=== PATIENT | male | born 1965 | race Hispanic/Latino ===

== ENCOUNTER 2018-03-09 07:05 | Emergency (ER) | payer BC ==
--- NOTE | 2018-03-09 08:13 | ER ---
Nurse's Notes [facility] Name: Prabhu Patel Age: 52 yrs Sex: Male : 1965 Arrival Date: 03/09/2018 Time: 07:06 Bed 20 Private MD: Chuck Jasso S Diagnosis: Pain in left shoulder;Unspecified injury of muscle(s) and tendon(s) of the rotator cuff of left shoulder Presentation: 03/09 07:13 Presenting complaint: Patient states: pt was pushing some heavy farm equipment em yesterday and heard a pop in the left shoulder, limited ROM due to pain, denies trauma. Transition of care: patient was not received from another setting of care. Onset of symptoms was March 08, 2018. Risk Assessment: Do you want to hurt yourself or someone else? Patient reports no desire to harm self or others. Initial Sepsis Screen: Does the patient meet any 2 criteria? No. Patient's initial sepsis screen is negative. Does the patient have a suspected source of infection? No. Patient's initial sepsis screen is negative. Care prior to arrival: None. 07:13 Method Of Arrival: Ambulatory em 07:13 Acuity: HARPAL 4 ss Triage Assessment: 07:15 General: Appears in no apparent distress. uncomfortable, Behavior is calm, cooperative. em Pain: Complains of pain in left shoulder Alleviated by movement. Historical: - Allergies: 07:15 No Known Allergies; em - PMHx: 07:15 Hypertension; tennis elbow; em - PSHx: 07:15 orbital eye sx; left thumb; em - Immunization history:: Adult Immunizations up to date. - Social history:: Smoking status: Patient/guardian denies using tobacco. - Ebola Screening: : Patient negative for fever greater than or equal to 101.5 degrees Fahrenheit, and additional compatible Ebola Virus Disease symptoms Patient denies exposure to infectious person Patient denies travel to an Ebola-affected area in the 21 days before illness onset No symptoms or risks identified at this time. Screenin:18 Abuse screen: Denies threats or abuse. Nutritional screening: No deficits noted. em Tuberculosis screening: No symptoms or risk factors identified. Fall Risk None identified. Assessment: 07:18 General: Appears in no apparent distress. uncomfortable, Behavior is calm, cooperative. em Pain: Complains of pain in left shoulder. Neuro: Level of Consciousness is awake, alert, obeys commands, Oriented to person, place, time, situation. Cardiovascular: Capillary refill < 3 seconds Patient's skin is warm and dry. Respiratory: Airway is patent Respiratory effort is even, unlabored, Respiratory pattern is regular, symmetrical. GI: Abdomen is flat. : No signs and/or symptoms were reported regarding the genitourinary system. Derm: Skin is intact, Skin is pink, warm \T\ dry. Musculoskeletal: Range of motion: limited in left shoulder. 07:23 General: the previous assessment is accurate, call light remains within reach. . ss 07:38 Reassessment: Patient appears in no apparent distress at this time. pt refused sling, em reports having 2 at home, provider notified. 08:20 Reassessment: Patient appears in no apparent distress at this time. Patient and/or em family updated on plan of care and expected duration. Pain level reassessed. Patient is alert, oriented x 3, equal unlabored respirations, skin warm/dry/pink. Vital Signs: 07:15 BP 168 / 94; Pulse 67; Resp 18; Pulse Ox 97% on R/A; Weight 99.79 kg; Height 5 ft. 10 em in. (177.80 cm); Pain 3/10; 08:32 BP 147 / 85; Pulse 71; Resp 16; Pulse Ox 99% on R/A; Pain 3/10; em 07:15 Body Mass Index 31.57 (99.79 kg, 177.80 cm) em ED Course: 07:06 Patient arrived in ED. am2 07:06 Chuck Jasso MD is Private Physician. am2 07:10 Shayne García NP is PHCP. pm1 07:13 Angel Camejo LVN is Primary Nurse. em 07:15 Arm band placed on. em 07:18 Patient has correct armband on for positive identification. Bed in low position. Call em light in reach. Adult w/ patient. 07:18 No provider procedures requiring assistance completed. em 07:21 Triage completed. ss 07:37 X-ray completed. Portable x-ray completed in exam room. Patient tolerated procedure kp1 well. 07:38 Shoulder Left (2 View) XRAY In Process Unspecified. EDMS 07:46 Francisco Sheridan MD is Attending Physician. pm1 08:11 Joshua Varner MD is Referral Physician. pm1 08:31 Patient did not have IV access during this emergency room visit. Shoulder immobilizer em applied on left shoulder. Administered Medications: No medications were administered Outcome: 08:12 Discharge ordered by MD. pm1 08:32 Discharged to home ambulatory, with family. em 08:32 Condition: good 08:32 Discharge instructions given to patient, family, Instructed on discharge instructions, follow up and referral plans. no drinking with medication, no driving heavy equipment, medication usage, Demonstrated understanding of instructions, follow-up care, medications, Prescriptions given X 1. 08:33 Patient left the ED. em Signatures: Dispatcher [employer] EDMS Angel Camejo, PROJECT MANAGER INDUSTRIAL PROJECT MANAGER INDUSTRIAL em Lucinda Saeed RN RN Shayne Dubon, PRABHA BUFFING LINE SET UP WORKER pm1 Sheri Otto am2 Belkys Vasquez kp1
--- NOTE | 2018-03-09 08:13 | EDPHYS ---
Physician Documentation [facility] Name: Prabhu Patel Age: 52 yrs Sex: Male : 1965 Arrival Date: 03/09/2018 Time: 07:06 Bed 20 Private MD: Chuck Jasso S ED Physician Francisco Sheridan HPI: 03/09 07:18 This 52 yrs old Male presents to ER via Ambulatory with complaints of Left pm1 Shoulder Pain. 07:18 The patient or guardian complains of an injury, pain. left shoulder. Context: The pm1 problem was sustained at home, resulted from lifting or carrying, a heavy object, The patient experiences decreased range of motion, The patient reports no obvious deformity. Onset: The symptoms/episode began/occurred yesterday. Modifying factors: the symptoms are alleviated by remaining still, The symptoms are aggravated by movement. Associated signs and symptoms: Pertinent negatives: abdominal pain, chest pain, diaphoresis, dyspnea, neck pain, Numbness in left arm tingling, Weakness in left arm. Severity of symptoms: in the emergency department the symptoms are actually worse. Treatment prior to arrival includes: no previous treatment. The patient has not experienced similar symptoms in the past. Patient was lifting up a ring for farm equipment with both hands and he felt a pop in his left arm that caused instant pain. Had some ROM to left shoulder last night. Patient is not able to lift his left arm up or keep it up when lifted up passively. Patient's left shoulder pain only present with moving it. Historical: - Allergies: 07:15 No Known Allergies; em - PMHx: 07:15 Hypertension; tennis elbow; em - PSHx: 07:15 orbital eye sx; left thumb; em - Immunization history:: Adult Immunizations up to date. - Social history:: Smoking status: Patient/guardian denies using tobacco. - Ebola Screening: : Patient negative for fever greater than or equal to 101.5 degrees Fahrenheit, and additional compatible Ebola Virus Disease symptoms Patient denies exposure to infectious person Patient denies travel to an Ebola-affected area in the 21 days before illness onset No symptoms or risks identified at this time. ROS: 07:18 Constitutional: Negative for fever, chills, and weight loss, Eyes: Negative for injury, pm1 pain, redness, and discharge, ENT: Negative for injury, pain, and discharge, Neck: Negative for injury, pain, and swelling, Cardiovascular: Negative for chest pain, palpitations, and edema, Respiratory: Negative for shortness of breath, cough, wheezing, and pleuritic chest pain, Abdomen/GI: Negative for abdominal pain, nausea, vomiting, diarrhea, and constipation, Back: Negative for injury and pain. 07:18 Skin: Negative for injury, rash, and discoloration, Neuro: Negative for headache, weakness, numbness, tingling, and seizure. 07:18 MS/extremity: Positive for pain, of the left shoulder, Negative for deformity. Exam: 07:18 Constitutional: This is a well developed, well nourished patient who is awake, alert, pm1 and in no acute distress. Head/Face: Normocephalic, atraumatic. Eyes: Pupils equal round and reactive to light, extra-ocular motions intact. Lids and lashes normal. Conjunctiva and sclera are non-icteric and not injected. Cornea within normal limits. Periorbital areas with no swelling, redness, or edema. ENT: Nares patent. No nasal discharge, no septal abnormalities noted. Tympanic membranes are normal and external auditory canals are clear. Oropharynx with no redness, swelling, or masses, exudates, or evidence of obstruction, uvula midline. Mucous membranes moist. Neck: Trachea midline, no thyromegaly or masses palpated, and no cervical lymphadenopathy. Supple, full range of motion without nuchal rigidity, or vertebral point tenderness. No Meningismus. Chest/axilla: Normal chest wall appearance and motion. Nontender with no deformity. No lesions are appreciated. Cardiovascular: Regular rate and rhythm with a normal S1 and S2. No gallops, murmurs, or rubs. Normal PMI, no JVD. No pulse deficits. Respiratory: Lungs have equal breath sounds bilaterally, clear to auscultation and percussion. No rales, rhonchi or wheezes noted. No increased work of breathing, no retractions or nasal flaring. Abdomen/GI: Soft, non-tender, with normal bowel sounds. No distension or tympany. No guarding or rebound. No evidence of tenderness throughout. Back: No spinal tenderness. No costovertebral tenderness. Full range of motion. Skin: Warm, dry with normal turgor. Normal color with no rashes, no lesions, and no evidence of cellulitis. 07:18 Musculoskeletal/extremity: Extremities: grossly normal except: noted in the left shoulder: Passive range of motion intact. Patient unable to keep left arm elevated when raised passively, drops to side without any resistance. 07:18 Neuro: Orientation: is normal, Sensation: is normal, no obvious gross deficits, Gait: is steady, at a normal pace, without difficulty. Vital Signs: 07:15 BP 168 / 94; Pulse 67; Resp 18; Pulse Ox 97% on R/A; Weight 99.79 kg; Height 5 ft. 10 em in. (177.80 cm); Pain 3/10; 08:32 BP 147 / 85; Pulse 71; Resp 16; Pulse Ox 99% on R/A; Pain 3/10; em 07:15 Body Mass Index 31.57 (99.79 kg, 177.80 cm) em MDM: 07:16 Patient medically screened. pm1 07:17 ED course: Patient offered pain medications. Patient refused since his shoulder does pm1 not hurt as long as he does not move it. 07:29 Data reviewed: vital signs. Data interpreted: Pulse oximetry: on room air is 97 %. pm1 Interpretation: normal. 08:09 ED course: Patient would like to use a shoulder immobilizer over a sling. He tried pm1 using a sling at home and it was painful and uncomfortable. 08:10 Counseling: I had a detailed discussion with the patient and/or guardian regarding: the pm1 historical points, exam findings, and any diagnostic results supporting the discharge/admit diagnosis, radiology results, the need for outpatient follow up, for definitive care, a orthopedic surgeon, MRI, to return to the emergency department if symptoms worsen or persist or if there are any questions or concerns that arise at home. 03/09 07:16 Order name: Shoulder Left (2 View) XRAY pm1 03/09 08:10 Order name: Shoulder Immobilizer; Complete Time: 08:31 pm1 Administered Medications: No medications were administered Disposition: 10:02 Co-signature as Attending Physician, Francisco Sheridan MD I agree with the assessment and kdr plan of care. Disposition: 03/09/18 08:12 Discharged to Home. Impression: Pain in left shoulder, Unspecified injury of muscle(s) and tendon(s) of the rotator cuff of left shoulder. - Condition is Stable. - Discharge Instructions: Rotator Cuff Injury, Shoulder Pain. - Prescriptions for Tylenol- Codeine #3 300-30 mg Oral Tablet - take 2 tablets by ORAL route every 6 hours As needed; 20 tablet. - Medication Reconciliation Form, Thank You Letter, Antibiotic Education, Prescription Opioid Use form. - Follow up: Joshua Varner MD; When: 2 - 3 days; Reason: Recheck today's complaints, Continuance of care, Re-evaluation by your physician. Follow up: Private Physician; When: 2 - 3 days; Reason: Recheck today's complaints, Continuance of care, Re-evaluation by your physician. - Problem is new. - Symptoms have improved. Signatures: Dispatcher [employer] EDMS Francisco Sheridan MD MD [facility] Angel Camejo, CLOTH SHRINKING MACHINE OPERATOR HELPER CLOTH SHRINKING MACHINE OPERATOR HELPER em Shayne García, PRABHA HYDRO SPRAYER OPERATOR pm1 Corrections: (The following items were deleted from the chart) 07:38 07:16 Sling ordered. pm1 em 08:33 08:12 03/09/2018 08:12 Discharged to Home. Impression: Pain in left shoulder; em Unspecified injury of muscle(s) and tendon(s) of the rotator cuff of left shoulder. Condition is Stable. Forms are Medication Reconciliation Form, Thank You Letter, Antibiotic Education, Prescription Opioid Use. Follow up: Joshua Varner; When: 2 - 3 days; Reason: Recheck today's complaints, Continuance of care, Re-evaluation by your physician. Follow up: Private Physician; When: 2 - 3 days; Reason: Recheck today's complaints, Continuance of care, Re-evaluation by your physician. Problem is new. Symptoms have improved. pm1
[2018-03-09 08:40] VITALS: BP 147/85; O2SAT 99
--- NOTE | 2018-03-09 09:20 | RAD REPORT ---
EXAM DESCRIPTION: RAD - Shoulder Left 2 View - 03/09/2018 7:39 am CLINICAL HISTORY: Left shoulder pain FINDINGS: No fracture or dislocation is seen. The bones appear somewhat osteoporotic. No additional bone or joint abnormality is noted
== END 2018-03-09 08:33 | disposition home or self-care (01) ==
LOC: ER 07:05
DX: S46.002A Unspecified injury of muscle(s) and tendon(s) of the rotator cuff of left shoulder, initial encounter (principal); X50.9XXA Other and unspecified overexertion or strenuous movements or postures, initial encounter; Y93.89 Activity, other specified; Y92.9 Unspecified place or not applicable; I10 Essential (primary) hypertension
CPT/HCPCS: 99283

== ENCOUNTER 2020-08-21 11:35 | Emergency (ER) | payer BC ==
[2020-08-21 12:22] LABS: Absolute Lymphocytes (CBC) 1.8 K/uL (0.7-4.9); Lymphocytes % 29.1 % (15.3-44.8); MPV 9.5 fL (7.6-11.3); RBC Red Blood Cell Count 5.05 M/uL (4.33-5.43)
[2020-08-21 12:24] LABS: Protime INR 1.2
--- NOTE | 2020-08-21 12:37 | RAD REPORT ---
EXAM DESCRIPTION: CT - Head Brain Wo Cont - 08/21/2020 12:29 pm CLINICAL HISTORY: Headache COMPARISON: None. TECHNIQUE: Computed axial tomography of the head was obtained. IV contrast was not requested. All CT scans are performed using dose optimization technique as appropriate and may include automated exposure control or mA/KV adjustment according to patient size. FINDINGS: An intracranial bleed is not seen . The ventricles are normal in caliber. No extra-axial fluid collection is noted. Fluid within the sinuses/ mastoids is not seen. IMPRESSION: No acute intracranial abnormality is seen. If patient's symptoms persist MRI of the bra in would be recommended.
[2020-08-21 12:41] LABS: ALT/SGPT 25 U/L (12-78); AST/SGOT 17 U/L (15-37); Albumin 3.9 g/dL (3.4-5.0); Alkaline Phosphatase 83 U/L (45-117); BUN Blood Urea Nitrogen 14 mg/dL (7-18); Bicarbonate 26 mmol/L (21-32); Bilirubin Direct 0.2 mg/dL (0-0.2); Bilirubin Total 0.9 mg/dL (0.2-1.0); Glucose Level 110 mg/dL (74-106); Magnesium 2.3 mg/dL (1.8-2.4); NT PRO-BNP 73 pg/mL (<125); Potassium 3.9 mmol/L (3.5-5.1); Protein, Total 7.8 g/dL (6.4-8.2); Sodium Level 143 mmol/L (136-145); Troponin (Emerg Dept Use Only) < 0.02 ng/mL (0.0-0.045)
[2020-08-21] MEDS ORDERED: ACETAMINOPHEN 500 MG TAB ONE (12:56)
--- NOTE | 2020-08-21 13:34 | ER ---
Nurse's Notes [facility] Name: Prabhu Patel Age: 55 yrs Sex: Male : 1965 Arrival Date: 08/21/2020 Time: 11:37 Bed 14 Private MD: Diagnosis: Elevated Blood pressure;Headache Presentation: 08/21 11:46 Coronavirus screen: Client denies travel out of the [place] in the last 14 days. At this ll1 time, the client does not indicate any symptoms associated with coronavirus-19. Ebola Screen: Patient denies travel to an Ebola-affected area in the 21 days before illness onset. Initial Sepsis Screen: Does the patient meet any 2 criteria? No. Patient's initial sepsis screen is negative. Does the patient have a suspected source of infection? No. Patient's initial sepsis screen is negative. Risk Assessment: Do you want to hurt yourself or someone else? Patient reports no desire to harm self or others. Onset of symptoms was August 19, 2020. 11:46 Method Of Arrival: Ambulatory ll1 11:46 Acuity: HARPAL 2 ll1 Historical: - Allergies: 11:46 No Known Allergies; ll1 - PMHx: 11:46 Hypertension; tennis elbow; ll1 - PSHx: 11:46 orbital eye sx; left thumb; ll1 11:48 shoulder sx; ll1 - Immunization history:: Flu vaccine is not up to date. - Social history:: Smoking status: Patient denies any tobacco usage or history of. Screenin:17 Abuse screen: Denies threats or abuse. Nutritional screening: No deficits noted. vg1 Tuberculosis screening: No symptoms or risk factors identified. Fall Risk None identified. Assessment: 12:00 General: Appears in no apparent distress. comfortable, Behavior is calm, cooperative. vg1 General: Reports headache. Pain: Denies pain. Neuro: Level of Consciousness is awake, alert, obeys commands, Oriented to person, place, time, situation. Cardiovascular: Capillary refill < 3 seconds Patient's skin is warm and dry. Pulses are palpable in right radial artery and left radial artery. Respiratory: Airway is patent Respiratory effort is even, unlabored, Respiratory pattern is regular, symmetrical. GI: No signs and/or symptoms were reported involving the gastrointestinal system. : No signs and/or symptoms were reported regarding the genitourinary system. EENT: No signs and/or symptoms were reported regarding the EENT system. Derm: Skin is intact, is healthy with good turgor. Musculoskeletal: Circulation, motion, and sensation intact. 13:20 Reassessment: Patient appears in no apparent distress at this time. Patient and/or vg1 family updated on plan of care and expected duration. Pain level reassessed. Patient is alert, oriented x 3, equal unlabored respirations, skin warm/dry/pink. Patient states feeling better. Vital Signs: 11:46 BP 186 / 97; Pulse 62; Resp 16; Temp 98.0; Pulse Ox 97% ; Weight 99.34 kg; Height 5 ft. ll1 10 in. (177.80 cm); Pain 4/10; 12:00 BP 165 / 107; Pulse 65; Resp 16; Pulse Ox 100% on R/A; vg1 13:00 BP 145 / 86; Pulse 69; Resp 16; Pulse Ox 99% on R/A; vg1 13:45 BP 132 / 86 LA (auto/lg); Pulse 62; Resp 18; Pulse Ox 98% on R/A; jp3 11:46 Body Mass Index 31.42 (99.34 kg, 177.80 cm) ll1 ED Course: 11:37 Patient arrived in ED. ds1 11:45 Arm band placed on Patient placed in an exam room, on a stretcher. ll1 11:47 Triage completed. 1 11:51 Brayan Campbell PA is PHCP. [facility] 11:51 Israel Klein MD is Attending Physician. [facility] 11:53 Yesenia Martinez, RN is Primary Nurse. 1 11:54 Primary Nurse role handed off by Yesenia Martinez, RN vg1 11:54 Janiya Howell, RN is Primary Nurse. vg1 12:03 EKG done, by ED staff, reviewed by Brayan DANGELO. jp3 12:10 Initial lab(s) drawn, by me, sent to lab. Inserted saline lock: 20 gauge in right vg1 antecubital area, using aseptic technique. Blood collected. 12:17 Patient has correct armband on for positive identification. Placed in gown. Bed in low vg1 position. Call light in reach. 12:[address] via wheelchair. vg1 13:45 Removal of peripheral IV. Catheter intact, dressing applied. jp3 13:48 No provider procedures requiring assistance completed. IV discontinued, intact, vg1 bleeding controlled, No redness/swelling at site. Pressure dressing applied. Administered Medications: 12:41 Drug: Tylenol 1000 mg Route: PO; vg1 13:49 Follow up: Response: No adverse reaction; Pain is decreased vg1 Outcome: 13:33 Discharge ordered by . moose 13:48 Discharged to home ambulatory. vg1 13:48 Condition: stable 13:48 Discharge instructions given to patient, Instructed on discharge instructions, follow up and referral plans. Demonstrated understanding of instructions, follow-up care. 13:49 Patient left the ED. vg1 Signatures: Brayan Campbell PA PA jmm Sanford, Demi ds1 Louis Landis jp3 Janiya Howell, RN RN vg1 Yesenia Martinez RN RN ll1
--- NOTE | 2020-08-21 13:35 | EDPHYS ---
Physician Documentation [facility] Name: Prabhu Patel Age: 55 yrs Sex: Male : 1965 Arrival Date: 08/21/2020 Time: 11:37 Bed 14 Private MD: ED Physician Israel Klein HPI: 08/21 11:52 This 55 yrs old Male presents to ER via Ambulatory with complaints of High jmm Blood Pressure. 11:52 The patient has elevated blood pressure and discovered this at home. Onset: The jmm symptoms/episode began/occurred gradually, 3 day(s) ago. Modifying factors: The symptoms are aggravated by The symptoms are alleviated by. Associated signs and symptoms: Pertinent positives: headache. This is a 55 year old male with a history of htn that presents to the ED with complaints of headache and elevated blood pressure over the past 3 days. Headache is frontal. Denies fever, chills. Patient denies chest pain or shortness of breath. . Historical: - Allergies: 11:46 No Known Allergies; ll1 - PMHx: 11:46 Hypertension; tennis elbow; ll1 - PSHx: 11:46 orbital eye sx; left thumb; ll1 11:48 shoulder sx; ll1 - Immunization history:: Flu vaccine is not up to date. - Social history:: Smoking status: Patient denies any tobacco usage or history of. ROS: 11:52 Constitutional: Negative for fever, chills, and weight loss. jmm 11:52 Cardiovascular: Negative for chest pain. 11:52 Respiratory: Negative for shortness of breath. 11:52 Neuro: Positive for headache. 11:52 All other systems are negative. Exam: 11:52 Constitutional: This is a well developed, well nourished patient who is awake, alert, jmm and in no acute distress. Head/Face: atraumatic. Eyes: EOMI, no conjunctival erythema appreciated ENT: Moist Mucus Membranes Neck: Trachea midline, Supple Chest/axilla: Normal chest wall appearance and motion. Cardiovascular: Regular rate and rhythm. No edema appreciated Respiratory: Normal respirations, no respiratory distress appreciated Abdomen/GI: Non distended, soft Back: Normal ROM Skin: General appearance color normal MS/ Extremity: Moves all extremities, no obvious deformities appreciated, no edema noted to the lower extremities Neuro: Awake and alert, normal gait Psych: Behavior is normal, Mood is normal, Patient is cooperative and pleasant 11:52 ECG was reviewed by the Attending Physician. Vital Signs: 11:46 BP 186 / 97; Pulse 62; Resp 16; Temp 98.0; Pulse Ox 97% ; Weight 99.34 kg; Height 5 ft. ll1 10 in. (177.80 cm); Pain 4/10; 12:00 BP 165 / 107; Pulse 65; Resp 16; Pulse Ox 100% on R/A; vg1 13:00 BP 145 / 86; Pulse 69; Resp 16; Pulse Ox 99% on R/A; vg1 13:45 BP 132 / 86 LA (auto/lg); Pulse 62; Resp 18; Pulse Ox 98% on R/A; jp3 11:46 Body Mass Index 31.42 (99.34 kg, 177.80 cm) ll1 MDM: 12:07 Patient medically screened. [facility] 13:31 Data reviewed: vital signs, nurses notes. Counseling: I had a detailed discussion with moose the patient and/or guardian regarding: the historical points, exam findings, and any diagnostic results supporting the discharge/admit diagnosis, lab results, radiology results, the need for outpatient follow up, to return to the emergency department if symptoms worsen or persist or if there are any questions or concerns that arise at home. ED course: Patient is alert and non toxic in appearance in the ED. No signs of resp distress. No focal neuro deficits. No chest pain. BP has decreased in the ED. Patient is advised to follow up with pcp and otherwise given strict return precautions. . 08/21 11:52 Order name: Basic Metabolic Panel [facility] 08/21 11:52 Order name: CBC with Diff [facility] 08/21 11:52 Order name: LFT's [facility] 08/21 11:52 Order name: Magnesium [facility] 08/21 11:52 Order name: NT PRO-BNP [facility] 08/21 11:52 Order name: PT-INR [facility] 08/21 11:52 Order name: Troponin (emerg Dept Use Only) [facility] 08/21 12:24 Order name: CBC with Automated Diff; Complete Time: 12:31 EDMT 08/21 12:25 Order name: Protime (+INR); Complete Time: 12:31 [facility] 08/21 12:41 Order name: Basic Metabolic Panel; Complete Time: 12:44 EDMS 0214 12:41 Order name: Liver (Hepatic) Function; Complete Time: 12:44 EDMS 0214 12:41 Order name: Troponin (Emerg Dept Use Only); Complete Time: 12:44 EDMS 14 12:41 Order name: NT PRO-BNP; Complete Time: 12:44 EDMS 0214 12:41 Order name: Magnesium; Complete Time: 12:44 EDMS 08/21 11:52 Order name: EKG; Complete Time: 11:52 [facility] 08/21 11:52 Order name: Cardiac monitoring; Complete Time: 12:14 [facility] 08/21 11:52 Order name: EKG - Nurse/Tech; Complete Time: 12:03 [facility] 08/21 11:52 Order name: IV Saline Lock; Complete Time: 12:14 [facility] 08/21 11:52 Order name: Labs collected and sent; Complete Time: 12:14 [facility] 08/21 11:52 Order name: O2 Per Protocol; Complete Time: 12:05 [facility] 08/21 11:52 Order name: O2 Sat Monitoring; Complete Time: 12:04 [facility] 08/21 12:08 Order name: CT Head Brain wo Cont [facility] 08/21 12:37 Order name: CT; Complete Time: 12:44 EDMS EC:52 Rate is 60 beats/min. Rhythm is regular. QRS Rosman is Normal. OR interval is normal. QRS jmm interval is normal. QT interval is normal. No Q waves. No ST changes noted. Reviewed by me. Administered Medications: 12:41 Drug: Tylenol 1000 mg Route: PO; vg1 13:49 Follow up: Response: No adverse reaction; Pain is decreased vg1 Disposition: 08/21/20 13:33 Discharged to Home. Impression: Elevated Blood pressure, Headache. - Condition is Stable. - Discharge Instructions: Hypertension. - Medication Reconciliation Form, Thank You Letter, Antibiotic Education, Prescription Opioid Use form. - Follow up: Private Physician; When: 2 - 3 days; Reason: Recheck today's complaints, Continuance of care, Re-evaluation by your physician. Addendum: 08/26/2020 19:18 Co-signature as Attending Physician, Israel Klein MD I agree with the assessment and t w4 plan of care. Signatures: Dispatcher [employer] EDBrayan Che PA PA jmm Wadley, Terrence, MD MD tw4 Janiya Howell RN RN vg1 Yesenia Martinez RN RN ll1 Corrections: (The following items were deleted from the chart) 08/21 13:49 13:33 08/21/2020 13:33 Discharged to Home. Impression: Elevated Blood pressure; vg1 Headache. Condition is Stable. Forms are Medication Reconciliation Form, Thank You Letter, Antibiotic Education, Prescription Opioid Use. Follow up: Private Physician; When: 2 - 3 days; Reason: Recheck today's complaints, Continuance of care, Re-evaluation by your physician. moose
[2020-08-21 13:58] VITALS: TEMP 98
[2020-08-21 14:00] VITALS: BP 132/86; O2SAT 98
--- NOTE | 2020-08-22 13:14 | EKG ---
Test Date: 2020-08-21 Test Time: 11:55:35 Mri Assistant: KATIE MEASUREMENT RESULTS: Intervals: Rate: 60 OR: 154 QRSD: 96 QT: 410 QTc: 410 Toyah: P: 60 OR: 154 QRS: -37 T: 43 INTERPRETIVE STATEMENTS: Normal sinus rhythm Left axis deviation Inferior infarct, possibly acute ACUTE LA / STEMI Abnormal ECG Compared to ECG 03/30/2014 05:43:17 Left-axis deviation now present Myocardial infarct finding now present Sinus bradycardia no longer present Electronically Signed On 08-22-20 13:12:35 SUPERVISOR BINDERY by Stone Feliciano
== END 2020-08-21 13:49 | disposition home or self-care (01) ==
LOC: ER 11:35
DX: I10 Essential (primary) hypertension (principal)
CPT/HCPCS: 36415; 70450; 80048; 80076; 83735; 83880; 84484; 85025; 85610; 93005; 99284

== ENCOUNTER 2021-07-21 12:44 | Emergency (ER) | payer BC ==
--- OUTSIDE RECORDS SUMMARY | 2021-07-21 12:48 | XMS REPORT | Continuity of Care Document ---
:[address] [facility] t Address [address] [place] [address] Care Team Providers Name Role Phone SALVATORE Primary Care Physician Unavailable SALVATORE Attending Clinician Unavailable Salvatore LINDSEY Attending Clinician Doctor Unassigned, Name Attending Clinician Unavailable Lc HOLGUIN Attending Clinician Unavailable JUAN PABLO Attending Clinician Unavailable Tomas BOSTON Attending Clinician Unavailable Payers Payer Name Policy Type Policy Number Effective Date Expiration Date S ource Problems Condition Condition Condition Status Onset Resolution Last Treating Co mments Source Name Details Category Date Date Treatment Clinician Date Seasonal Seasonal Disease Active 2014-07 Unive rs allergies allergies 0-09 ity of 00:00: [address] Essential Essential Disease Active 2014-07 Uni vers hypertensi hypertensi 0-09 [place] y [place] [address] [place] [address] Allergies, Adverse Reactions, Alerts Allergy Allergy Status Severity Reaction(s) Onset Inactive Treating Comm ents Source Name Type Date Date Clinician NO KNOWN Drug Active Univers ALLERGIE Class ity of S [facility] Social History Social Habit Start Date Stop Date Quantity Comments Source Exposure to Not sure [facility] SARS-CoV-2 (event) [facility] Alcohol intake 2021-04-24 2021-04-24 1.71 /d University of 00:00:00 00:00:00 [facility] Tobacco use and 2015-12-30 2015-12-30 Never used Universit y of exposure 00:00:00 00:00:00 [facility] Cigarettes smoked 2015-12-30 2015-12-30 Univers ity of current (pack per 00:00:00 00:00:00 [facility] ed) - Reported Branch Cigarette 2015-12-30 2015-12-30 University of pack-years 00:00:00 00:00:00 [facility] Tobacco Comment 2015-12-30 2015-12-30 quit 25 years Univer sity of 00:00:00 00:00:00 ago [facility] History of tobacco 1989-05-06 Cigarette Smoker University of use 00:00:00 [facility] Sex Assigned At [birth year] Universit y of 00:00:00 00:00:00 [facility] Smoking Status Start Date Stop Date Source Former smoker 2015-12-30 00:00:00 2015-12-30 00:00:00 [facility] [place] [facility] Medications Ordered Filled Start Stop Current Ordering Indication Dosage Frequency Signature Comments Components Source Medication Medication Date Date Medication? Clinician (SIG) Name Name VALSARTAN 2020-07 Yes [id number] TAKE 1 Uni vers 160 mg 2-20 TABLET BY ity of tablet 00:00: MOUTH [place] EVERY DAY Medical Branch gabapentin 2020-07 Yes [id number] 300mg Take 1 Univers 300 mg 0-18 02 capsule by ity of capsule 00:00: mouth [place] ([facility]) Medical times [place] daily. gabapentin 2020-07 Yes [id number] 300mg Take 1 Univers 300 mg 0-18 02 capsule by ity of capsule 00:00: mouth [place] ([facility]) Medical times Branch daily. gabapentin 2020-07 Yes [id number] 300mg Take 1 Univers 300 mg 0-18 02 capsule by ity of capsule 00:00: mouth [address] [place] [address] ([facility]) Medical times [place] daily. gabapentin 2020-07 Yes [id number] 300mg Take 1 Univers 300 mg 0-18 02 capsule by ity of capsule 00:00: mouth [place] (two) Medical times [place] daily. VALSARTAN 2020-07 Yes [id number] TAKE 1 Uni vers 160 mg 0-04 TABLET BY ity of tablet 00:00: MOUTH [place] EVERY DAY Medical Branch VALSARTAN 2020-07 Yes [id number] TAKE 1 Uni vers 160 mg 0-04 TABLET BY ity of tablet 00:00: MOUTH [place] EVERY DAY Medical Branch VALSARTAN 2020-07 Yes [id number] TAKE 1 Uni vers 160 mg 0-04 TABLET BY ity of tablet 00:00: MOUTH [place] 00 EVERY DAY [facility] VALSARTAN 2020-07- No [id number] TAKE 1 Un [place] 160 mg 0-04 12-20 TABLET BY ity of tablet 00:00: 00:00 MOUTH [place] 00 :00 EVERY DAY [facility] Vital Signs Vital Name Observation Time Observation Value Comments Source Systolic blood 2021-04-24 15:00:00 135 mm[Hg] Univer sity [facility] Diastolic blood 2021-04-24 15:00:00 78 [facility]Hg[facility] 2021-04-24 14:55:00 87.091 kg [facility] BMI 2021-04-24 14:55:00 27.55 kg/m2 [facility] Procedures This patient has no known procedures. Encounters Start End Encounter Admission Attending Care Care Encounter Source Date/Time Date/Time Type Type Clinicians Facility Department ID 2021-07-20 2021-07-20 [id number] Univers 10:15:00 10:15:00 PAMELA [id number] [facility] 2021-06-26 2021-06-26 [facility] [id number] Univers 00:00:00 00:00:00 [facility] [id number] it [facility] [id number] Kenny as PROFESSIO [id number] Mt cruzwv AGUSTINA [address] [place] [address] OFFICE BUILDING ONE 2021-04-24 2021-04-24 [facility] [id number] Univers 09:55:20 10:10:[address] [facility] [id number] it y of [place] [id number] Kenny as Kade?Blea [phone] Mt dical marcelinaey [address] [place] [address] Medical Office Building 2021-04-24 2021-04-24 [facility] [id number] Univers 10:00:00 10:00:00 PAMELA [id number] [facility] 2021-04-24 2021-04-24 [facility] [id number] Univers 10:00:00 10:00:00 PAMELA caryl [facility] 2021-04-24 2021-04-24 Refill Doctor [facility] [id number] Univers 00:00:00 00:00:00 Unassigned, Health [id number] ity of [place] [id number] Kenny as Kade?Blea [id number] Mt cruzgene [address] Medical Office Building 2021-02-03 2021-02-03 Outpatient R CHELSIE, [facility] [id number] Univers 11:30:00 11:30:00 SENDIL [id number] [facility] 2021-01-13 2021-01-13 Outpatient R JUAN PABLO, [facility] [id number] Univers 09:00:00 09:00:00 VIMAL mccoy o [facility] 2021-01-13 2021-01-13 Outpatient R JUAN PABLO, [facility] [id number] Univers 09:00:00 09:00:00 VIMAL [id number] nadine o [facility] 2021-01-11 2021-01-11 Outpatient R JUAN PABLO, [facility] [id number] Univers 10:40:00 10:40:00 VIMAL [id number] alexandery o [facility] 2021-01-11 2021-01-11 Outpatient R JUAN PABLO, [facility] [id number] Univers 10:40:00 10:40:00 VIMAL mccoy o [facility] 2021-01-03 2021-01-03 Outpatient SALVATORE, [facility] [id number] Univers 07:00:00 07:00:00 PAMELA [id number] [facility] 2021-01-03 2021-01-03 Outpatient Garcia CHASE, [facility] [id number] Univers 07:00:00 07:00:00 PAMELA mccoy [facility] 2020-11-01 2020-11-01 Outpatient SALVATORE, [facility] [id number] Univers 07:30:00 07:30:00 PAMELA [id number] [facility] 2020-11-012020-11-01 Outpatient Garcia CHASE [facility] [id number] Univers 07:30:00 07:30:00 PAMELA caryl [facility] 2020-10-06 2020-10-06 Outpatient CHASE, [facility] [id number] Univers 13:00:00 13:00:00 PAMELA [id number] [facility] 2020-10-06 2020-10-06 Outpatient Garcia CHASE [facility] [id number] Univers 13:00:00 13:00:00 PAMELA [facility] 2020-04-22 2020-04-22 Outpatient Garcia BONNERDARVIN, [facility] [id number] Univers 09:00:00 09:00:00 BRIAN [id number] [facility] 2020-04-22 2020-04-22 Outpatient Garcia BOSTON [facility] [id number] Univers 09:00:00 09:00:00 BRIAN [facility] 2020-01-18 2020-01-18 Outpatient Garcia CHASE [facility] [id number] Univers 16:15:00 16:15:00 PAMELA [id number] [facility] 2020-01-18 2020-01-18 Outpatient Garcia CHASE [facility] [id number] Univers 16:15:00 16:15:00 PAMELA [facility] 2019-10-13 2019-10-13 Outpatient Garcia CHASE [facility] [id number] Univers 08:45:00 08:45:00 PAMELA [id number] [facility] 2019-10-13 2019-10-13 Outpatient Garcia CHASE [facility] [id number] Univers 08:45:00 08:45:00 [facility] Results This patient has no known results.
[2021-07-21] MEDS ORDERED: MECLIZINE HCL 12.5 MG TAB ONE (14:17)
--- NOTE | 2021-07-21 14:28 | RAD REPORT ---
EXAM DESCRIPTION: CT - Head Brain Wo Cont - 07/21/2021 2:19 pm CLINICAL HISTORY: Dizziness COMPARISON: 2020 TECHNIQUE: Computed axial tomography of the head was obtained. IV contrast was not requested. All CT scans are performed using dose optimization technique as appropriate and may include automated exposure control or mA/KV adjustment according to patient size. FINDINGS: An intracranial bleed is not seen . The ventricles are normal in caliber. No extra-axial fluid collection is noted. Fluid within the sinuses/ mastoids is not seen. IMPRESSION: No acute intracranial abnormality is seen. If patient's symptoms persist MRI of the bra in would be recommended.
--- NOTE | 2021-07-21 15:19 | EDPHYS ---
Physician Documentation [facility] Name: Prabhu Patel Age: 55 yrs Sex: Male : 1965 Arrival Date: 07/21/2021 Time: 12:47 Bed 12 Private MD: ED Physician Francisco Sheridan HPI: 07/21 18:02 This 55 yrs old Male presents to ER via Ambulatory with complaints of Covid+, kdr Dizziness. 18:02 The patient presents with dizziness. Onset: The symptoms/episode began/occurred kdr gradually, 3 day(s) ago. Context: occurred at home, occurred while the patient was at rest. Modifying factors: the symptoms are aggravated by movement of head. Modifying factors: The symptoms are alleviated by Benadryl, holding head still, the symptoms are aggravated by. 18:03 Associated signs and symptoms: Pertinent positives: headache, nausea, Pertinent kdr negatives: ataxia, blurred vision, chest pain, combativeness, confusion, diaphoresis, focal weakness, head injury, headache, near-syncope, numbness, palpitations, , seizure, shortness of breath, syncope, tingling. Severity of symptoms: At their worst the symptoms were very mild mild just prior to arrival, in the emergency department the symptoms are unchanged. Patient's baseline: Neuro: alert and fully oriented, Motor: no deficits, Ambulation: walks without assistance, Speech: normal. The patient has not experienced similar symptoms in the past. The patient has been recently seen by a physician: Patient recently had his COVID vaccination and was diagnosed with COVID. Historical: - Allergies: 13:10 No Known Allergies; vg1 - Home Meds: 13:10 losartan oral [Active]; vg1 - PMHx: 13:10 Hypertension; tennis elbow; vg1 - PSHx: 13:10 None; vg1 - Immunization history:: Client reports having NOT received the Covid vaccine. - Social history:: Smoking status: Patient denies any tobacco usage or history of. ROS: 18:03 Constitutional: Negative for fever, chills, and weight loss, Eyes: Negative for injury, kdr pain, redness, and discharge, ENT: Negative for injury, pain, and discharge, Neck: Negative for injury, pain, and swelling, Cardiovascular: Negative for chest pain, palpitations, and edema, Respiratory: Negative for shortness of breath, cough, wheezing, and pleuritic chest pain, Abdomen/GI: Negative for abdominal pain, nausea, vomiting, diarrhea, and constipation, Back: Negative for injury and pain, : Negative for injury, bleeding, discharge, and swelling, MS/Extremity: Negative for injury and deformity, Skin: Negative for injury, rash, and discoloration, Psych: Negative for depression, anxiety, suicide ideation, homicidal ideation, and hallucinations, Allergy/Immunology: Negative for hives, rash, and allergies, Endocrine: Negative for neck swelling, polydipsia, polyuria, polyphagia, and marked weight changes, Hematologic/Lymphatic: Negative for swollen nodes, abnormal bleeding, and unusual bruising. 18:03 Neuro: Positive for dizziness, Negative for altered mental status, gait disturbance, headache, hearing loss, numbness, seizure activity, speech changes, tinnitus, tremor, visual changes, acute changes. Exam: 18:03 Constitutional: This is a well developed, well nourished patient who is awake, alert, kdr and in no acute distress. Head/Face: Normocephalic, atraumatic. Eyes: Pupils equal round and reactive to light, extra-ocular motions intact. Lids and lashes normal. Conjunctiva and sclera are non-icteric and not injected. Cornea within normal limits. Periorbital areas with no swelling, redness, or edema. Neck: Trachea midline, no thyromegaly or masses palpated, and no cervical lymphadenopathy. Supple, full range of motion without nuchal rigidity, or vertebral point tenderness. No Meningismus. Chest/axilla: Normal chest wall appearance and motion. Nontender with no deformity. No lesions are appreciated. Cardiovascular: Regular rate and rhythm with a normal S1 and S2. No gallops, murmurs, or rubs. Normal PMI, no JVD. No pulse deficits. Respiratory: Lungs have equal breath sounds bilaterally, clear to auscultation and percussion. No rales, rhonchi or wheezes noted. No increased work of breathing, no retractions or nasal flaring. Abdomen/GI: Soft, non-tender, with normal bowel sounds. No distension or tympany. No guarding or rebound. No evidence of tenderness throughout. Skin: Warm, dry with normal turgor. Normal color with no rashes, no lesions, and no evidence of cellulitis. MS/ Extremity: Pulses equal, no cyanosis. Neurovascular intact. Full, normal range of motion. Neuro: Awake and alert, GCS 15, oriented to person, place, time, and situation. Cranial nerves II-XII grossly intact. Motor strength 5/5 in all extremities. Sensory grossly intact. Cerebellar exam normal. Normal gait. Psych: Awake, alert, with orientation to person, place and time. Behavior, mood, and affect are within normal limits. Vital Signs: 13:08 BP 139 / 81; Pulse 62; Resp 17; Temp 98.9; Pulse Ox 100% ; Weight 81.65 kg; Height 5 vg1 ft. 10 in. (177.80 cm); Pain 0/10; 15:00 BP 127 / 83; Pulse 67; Resp 16; Pulse Ox 100% on R/A; Pain 0/10; ab2 13:08 Body Mass Index 25.83 (81.65 kg, 177.80 cm) vg1 MDM: 15:19 Patient medically screened. kdr 18:03 Data reviewed: vital signs, nurses notes, lab test result(s), radiologic studies. kdr Counseling: I had a detailed discussion with the patient and/or guardian regarding: the historical points, exam findings, and any diagnostic results supporting the discharge/admit diagnosis, lab results, radiology results, the need for outpatient follow up. 07/21 14:07 Order name: CT Head Brain wo Cont kdr Administered Medications: 14:17 Drug: Meclizine 25 mg Route: PO; ab2 Disposition Summary: 07/21/21 15:19 Discharge Ordered Location: Home kdr Problem: new kdr Symptoms: have improved kdr Condition: Stable kdr Diagnosis - Dizziness and giddiness kdr Followup: kdr - With: Private Physician - When: 2 - 3 days - Reason: If symptoms return, Further diagnostic work-up, Recheck today's complaints, Continuance of care, Re-evaluation by your physician Discharge Instructions: - Vertigo, Uxat-cn-Vitb kdr - Dizziness, [id number]-[id number] kdr - Discharge Summary Sheet ab2 Forms: - School release form ab2 - Medication Reconciliation Form kdr - Thank You Letter kdr Prescriptions: - Meclizine 25 mg Oral Tablet - take 1 tablet by ORAL route every 8 hours As needed; 30 tablet; Refills: 0, kdr Product Selection Permitted Signatures: Dispatcher [employer] Francisco Daily MD MD kdr Janiya Howell RN RN vg1 Cruz Peña2 Corrections: (The following items were deleted from the chart) 18:05 18:02 Modifying factors: The symptoms are alleviated by nothing, the symptoms are kdr aggravated by nothing, kdr
--- NOTE | 2021-07-21 15:19 | ER ---
Nurse's Notes [facility] Name: Prabhu Patel Age: 55 yrs Sex: Male : 1965 Arrival Date: 07/21/2021 Time: 12:47 Bed 12 Private MD: Diagnosis: Dizziness and giddiness Presentation: 07/21 13:08 Chief complaint: Patient states: on Saturday the 8th pt states had a temperature of vg1 101; took a home covid test and it was Positive; went to urgent care on Saturday and another test stated positive. States Saturday started feeling dizzy and nausea. Coronavirus screen: Vaccine status: Patient reports being unvaccinated. Client denies travel out of the [place] in the last 14 days. Ebola Screen: Patient negative for fever greater than or equal to 101.5 degrees Fahrenheit, and additional compatible Ebola Virus Disease symptoms. Initial Sepsis Screen: Does the patient meet any 2 criteria? No. Patient's initial sepsis screen is negative. Does the patient have a suspected source of infection? No. Patient's initial sepsis screen is negative. Risk Assessment: Do you want to hurt yourself or someone else? Patient reports no desire to harm self or others. Onset of symptoms was July 15, 2021. 13:08 Method Of Arrival: Ambulatory vg1 13:08 Acuity: HARPAL 4 vg1 Triage Assessment: 13:10 General: Appears in no apparent distress. comfortable, Behavior is calm, cooperative. vg1 Pain: Denies pain. Historical: - Allergies: 13:10 No Known Allergies; vg1 - Home Meds: 13:10 losartan oral [Active]; vg1 - PMHx: 13:10 Hypertension; tennis elbow; vg1 - PSHx: 13:10 None; vg1 - Immunization history:: Client reports having NOT received the Covid vaccine. - Social history:: Smoking status: Patient denies any tobacco usage or history of. Screenin:59 Abuse screen: Denies threats or abuse. Denies injuries from another. Nutritional ab2 screening: No deficits noted. Tuberculosis screening: No symptoms or risk factors identified. Fall Risk None identified. Assessment: 13:58 General: Appears in no apparent distress. comfortable, Behavior is calm, cooperative, ab2 appropriate for age. Pain: Denies pain. Neuro: Level of Consciousness is awake, alert, obeys commands, Oriented to person, place, time, situation, Appropriate for age Handbag Finisher are equal bilaterally Moves all extremities. Gait is steady, Speech is normal, Facial symmetry appears normal, Reports dizziness. Cardiovascular: No deficits noted. Reports Denies chest pain, shortness of breath, Heart tones S1 S2 present Patient's skin is warm and dry. Respiratory: No deficits noted. Airway is patent Breath sounds are clear bilaterally. GI: No deficits noted. No signs and/or symptoms were reported involving the gastrointestinal system. : No deficits noted. No signs and/or symptoms were reported regarding the genitourinary system. EENT: No deficits noted. No signs and/or symptoms were reported regarding the EENT system. Derm: No deficits noted. No signs and/or symptoms reported regarding the dermatologic system. Musculoskeletal: No deficits noted. No signs and/or symptoms reported regarding the musculoskeletal system. 15:37 Reassessment: Patient states symptoms have improved. ab2 Vital Signs: 13:08 BP 139 / 81; Pulse 62; Resp 17; Temp 98.9; Pulse Ox 100% ; Weight 81.65 kg; Height 5 vg1 ft. 10 in. (177.80 cm); Pain 0/10; 15:00 BP 127 / 83; Pulse 67; Resp 16; Pulse Ox 100% on R/A; Pain 0/10; ab2 13:08 Body Mass Index 25.83 (81.65 kg, 177.80 cm) vg1 ED Course: 12:47 Patient arrived in ED. mr 13:10 Triage completed. vg1 13:10 Arm band placed on. vg1 13:13 Francisco Sheridan MD is Attending Physician. kdr 13:45 Cruz Peña is Primary Nurse. ab2 13:59 Patient has correct armband on for positive identification. Call light in reach. Side ab2 rails up X2. 13:59 No provider procedures requiring assistance completed. ab2 14:19 CT Head Brain wo Cont In Process Unspecified. EDMS 15:37 Patient did not have IV access during this emergency room visit. ab2 Administered Medications: 14:17 Drug: Meclizine 25 mg Route: PO; ab2 Outcome: 15:19 Discharge ordered by . kdr 15:37 Discharged to home ambulatory. ab2 15:37 Condition: good 15:37 Discharge instructions given to patient, Instructed on discharge instructions, follow up and referral plans. medication usage, Demonstrated understanding of instructions, follow-up care, medications, Prescriptions given X 1. 15:38 Patient left the ED. ab2 Signatures: Dispatcher [employer] EDMS Francisco Sheridan MD MD kdr Rivera, Mary mr Garcia, Victoria, RN RN vg1 Cruz Peña ab2
[2021-07-21 15:43] VITALS: TEMP 98.9; O2SAT 100
[2021-07-21 15:45] VITALS: BP 127/83
== END 2021-07-21 15:38 | disposition home or self-care (01) ==
LOC: ER 12:44
DX: R42 Dizziness and giddiness (principal); U07.1 COVID-19; I10 Essential (primary) hypertension
CPT/HCPCS: 70450; 99283; J8597

== ENCOUNTER 2022-07-18 06:17 | Day surgery (SDC) | payer BC ==
--- NOTE | 2022-07-16 14:41 | RAD REPORT ---
EXAM DESCRIPTION: RAD - Chest Pa And Lat (2 Views) - 07/16/2022 2:36 pm CLINICAL HISTORY: Pre op pending hernia repairs Chest pain. COMPARISON: CHEST SINGLE VIEW dated 03/30/2014; CHEST PA AND LAT 2 VIEW dated 10/05/2009 FINDINGS: The lungs are clear. The heart is normal in size. No displaced fractures. IMPRESSION: No acute or concerning finding suspected.
[2022-07-16 14:56] LABS: Absolute Lymphocytes (CBC) 1.9 K/uL (0.7-4.9); Hematocrit 42.4 % (39.6-49.0); Lymphocytes % 31.6 % (15.3-44.8); MPV 8.6 fL (7.6-11.3); RBC Red Blood Cell Count 4.66 M/uL (4.33-5.43)
--- NOTE | 2022-07-17 14:24 | EKG ---
Test Date: 2022-07-16 Test Time: 14:25:53 Stock Sorter: ARNULFO MEASUREMENT RESULTS: Intervals: Rate: 57 OK: 152 QRSD: 80 QT: 438 QTc: 426 [place]: P: 62 OK: 152 QRS: -1 T: 68 INTERPRETIVE STATEMENTS: Sinus bradycardia Otherwise normal ECG Compared to ECG 08/21/2020 11:55:35 Sinus rhythm no longer present Left-axis deviation no longer present Myocardial infarct finding no longer present Electronically Signed On 07-17-22 14:22:16 RESIDENTIAL [employer] TECHNICIAN by Willie Garcia
[2022-07-18] MEDS ORDERED: Ringers Lactate 1,000 ML IV ONE ×3 (06:43→08:34)
[2022-07-18] MEDS ORDERED: CEFAZOLIN SODIUM 1 GM/VIAL ONE (06:43)
[2022-07-18] MEDS ORDERED: dexAMETHasone 10 MG/ML VIAL ONE (07:23)
[2022-07-18] MEDS ORDERED: propofoL 200 MG/20 ML VIAL IV ONE (07:23)
[2022-07-18] MEDS ORDERED: LIDOCAINE 2% MPF 5 ML VIAL ONE (07:23)
[2022-07-18] MEDS ORDERED: FENTANYL CITR 100 MCG/2 ML ONE (07:23)
[2022-07-18] MEDS ORDERED: ONDANSETRON 4 MG/2 ML VIAL ONE (07:24)
[2022-07-18] MEDS ORDERED: KETOROLAC 30 MG/ML INJ ONE (07:24)
[2022-07-18] MEDS ORDERED: MIDAZOLAM HCL 2 MG/2 ML INJ ONE (07:24)
[2022-07-18] MEDS ORDERED: ROCURONIUM 50 MG/5 ML VIAL IV ONE (07:27)
[2022-07-18] MEDS ORDERED: NS 0.9% VIAL 10 ML ONE (08:03)
[2022-07-18] MEDS ORDERED: EPHEDRINE SULF 50 MG/ML VIAL ONE (08:31)
--- NOTE | 2022-07-18 09:09 | P.BOP ---
Preoperative diagnosis: tender bilateral inguinal hernia, umbilical hernia Postoperative diagnosis: same Primary procedure: 1. Laparoscopic repair of tender reducible Right inguinal hernia with mesh Secondary procedure: 2. Laparoscopic repair of tender reducibleLeft inguinal hernia with mesh Other procedure(s): 3. Open repair of tender umbilical reducible hernia Estimated blood loss: <10cc Specimen: none Findings: as above Anesthesia: General Complications: None Implants: 3d mesh medium Transferred to: Recovery Room Condition: Good
[2022-07-18 09:41] VITALS: BP 135/77; TEMP 97.6; O2SAT 99
--- NOTE | 2022-07-18 15:28 | OP ---
Date of Procedure: 07/18/2022 Surgeon: Hira Fu MD Preoperative Diagnoses: Tender bilateral inguinal hernias and umbilical hernia. Postoperative Diagnoses: Tender bilateral inguinal hernias and umbilical hernia. Procedures: 1.Laparoscopic repair of tender reducible right inguinal hernia with mesh. 2.Laparoscopic repair of tender reducible left inguinal hernia with mesh. 3.Open repair of tender umbilical reducible hernia. Specimen: None. Findings: The patient has 3 hernias as above. Anesthesia: General plus local. Implants: A 3D mesh left and right in the inguinal region. Complications: None. Indication: This is the case of a male, who comes to us with tender 3 hernias, inguinal and umbilica l hernia. The benefits, alternatives, and risks of repair of umbilical and inguinal hernia fully exp lained, which include, but not limited to infection, bleeding, damage to adjacent structures, anesthe annette complication, recurrence, TN, and even . He also understands this may not relieve any sympt oms. He might need more than one surgical intervention. He understands for the inguinal region, mos t likely we will be using mesh in that region. Pros and cons of mesh placement discussed with the justice han and all the questions answered to his satisfaction. He signed a consent. Procedure In Detail: The patient was brought to the operating room, placed in supine position. Anes thesia was done without complication. Abdominal area was prepped and draped in the usual sterile fas hion. Marcaine 0.5% was injected for local anesthetic followed by sharp incision of the skin in the infraumbilical region. We then used that incision to fix not only the inguinal hernias, but also the umbilical. So when we did the umbilical area, we proceeded to go and find the anterior rectus sheat h that was opened and the muscle retracted laterally to expose the posterior rectus sheath. The extr aperitoneal space was developed with the help of blunt dissection and a balloon tip trocar placed in the space, directed toward the pubic symphysis under direct visualization with the scope on it. Afte r we had that directed there, we inflated the balloon under direct visualization, then deflated ballo on, removed the balloon, insufflated the area and then after direct visualization, we proceeded to pl patrick a 5 mm trocar in the suprapubic area and intermediate between the first and the second one. The prepe ritoneal space was gently developed with the help of the instruments exposing the inferior epigastric vessels and keeping them anterior. The John ligament was dissected laterally to the junction with the iliac veins. The dissection continued inferiorly to the iliopubic tract avoiding damage to the femoral branch of the genitofemoral nerve and lateral femoral cutaneous nerve. The cord structures w ere carefully skeletonized. The sac was identified, reduced back by gentle traction into the abdomin al cavity. This was done on the right side first. Then, we went to the left side first once again. We kept the epigastric vessels anteriorly and dissected John ligament laterally to the junction wi th the iliac veins continually inferiorly to the iliopubic tract avoiding damage to the femoral branc h of the genitofemoral nerve and lateral femoral cutaneous nerve. The cord structures were carefully skeletonized. The hernia sac was identified and reduced by gentle traction into the peritoneal cavi ty. At that moment, I proceeded to place a 3D mesh medium size, introduced that through the trocar s ite into the working space of the left inguinal area first. We put the mesh into place to cover dire ct and indirect spaces. The mesh was secured in place with SorbaFix fixation device laterally and ovalle perior to the iliopubic tract and inferior and medial to the John ligament. Then, we directed our attention to the right side. We put once again a median size 3D mesh, aligned that to cover direct a nd indirect spaces, and then secured that laterally and superior to the iliopubic tract and inferior and medial to the John ligament once again using SorbaFix fixation device. After ensuring adequate hemostasis, we proceeded to place lidocaine anesthetic over the area and then allowed the air to esc ape and removed the trocars. The anterior rectus sheath was closed with #1 Vicryl. After that, we p roceeded to go to the umbilical region and we found an umbilical hernia in that area. We t he umbilical sac from the umbilical skin, cleaned the fascial edges, and we were able to approximate the fascial edges since they looked strong enough with #1 Vicryl in a [id number] fashion without the use of any mesh. The area was irrigated. Subcutaneous tissue was closed with 3-0 chromic and s kin in subcuticular fashion with 3-0 chromic. At the end of the case, testicles were in the scrotum. The patient tolerated the procedure well. The patient was sent to recovery in stable condition. DANIELLA/AISHWARYA Voice ID: [id number] Report ID: [id number]
--- NOTE | 2022-07-18 15:31 | DS ---
Date of Discharge: 07/18/2022 Diagnosis: Bilateral inguinal hernias and umbilical hernia. Procedures: Laparoscopic repair of bilateral inguinal hernia with mesh and open repair of umbilical hernia disposition home. Activity: As tolerated. No heavy lifting. Plan: Followup in my office in 1 week. Call for appointment on [phone]. Keep area dry for 48 hour s, then may shower. Keep Steri-Strips intact. Cold compress over the inguinal region, scrotal suppo rt. DANIELLA/AISHWARYA Voice ID: [id number] Report ID: [id number]
== END 2022-07-18 10:30 | disposition home or self-care (01) ==
LOC: OR 06:17
PROVIDERS: ATTEND Surgery
PROC: 0YUA4JZ Supplement Bilateral Inguinal Region with Synthetic Substitute, Percutaneous Endoscopic Approach (ICD-10-PCS; 2022-07-18)
PROC: 0WQF0ZZ Repair Abdominal Wall, Open Approach (ICD-10-PCS; principal; 2022-07-18 07:30)
DX: K40.20 Bilateral inguinal hernia, without obstruction or gangrene, not specified as recurrent (principal); K42.9 Umbilical hernia without obstruction or gangrene; I10 Essential (primary) hypertension
CPT/HCPCS: 93005; 85025; 80048; 36415; 88302; 71046; 49591; 49650; J2704; J2001; J2250; J3010; J1100; A4216; J7120 ×3; J2405; J0690

== ENCOUNTER 2024-08-20 09:29 | Emergency (ER) | payer OTHER ==
--- OUTSIDE RECORDS SUMMARY | 2024-08-20 09:32 | XMS REPORT | Continuity of Care Document ---
Author Name Unknown Address [address] [facility]. [address] [place] [address] [facility] thconnect Address [address] [facility] [address] [place] [address] Care Team Providers Care Senior Mobile Application Developer Name Role Phone Pamela Chase MD Primary Care Physician [phone] Doctor Unassigned, [place] Attending Clinician U Kofi Morin MD Attending Clinician + [phone] Kofi Espinoza MD Attending Clinician + [phone] Doctor Unassigned, [place] Attending Clinician U KOFI Morin Attending Clinician UnavailKOFI Cardona Attending Clinician UnavailPamela Hardwick MD Attending Clinician [phone] Tech, [facility] Attending Clinician UnavailPAMELA Hardwcik Attending Clinician Unavailable Lab, Ang - Db Attending Clinician Unavailable Tank Almeida MD Attending Clinician [phone] TANK ALMEIDA Attending Clinician Unavailable 2, [facility] Attending Clinician Unavailable Lab, [facility] Fam Pob I Attending Clinician Unavailab Chacho Baeza DO Attending Clinician [phone] Nuzhat Johnson Attending Clinician [phone] NUZHAT BOSTON Attending Clinician Unavailable Payers Payer Name Policy Type Policy Number Effective Date Expirati on Date Source Problems Condition Name Condition Details Condition Category Status Onset Date Resolution Date Last Treatment Date Treating Clinician Comments Source 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 to medical condition Disease Active 2022-07 00:00: 00 General acute hospital Moderate episode of recurrent major depressive disorder Moderate episode of recurrent major depressive disorder Disease Active 2022-07 00:00: 00 General acute hospital Anxiety Anxiety Disease Active 2022-07 00:00: 00 General acute hospital Moderate episode of recurrent major depressive disorder Moderate episode of recurrent major depressive disorder Disease Active 2022-07 00:00: 00 General acute hospital Seasonal allergies Seasonal allergies Disease Active 2014-07 00:00: 00 General acute hospital Essential hypertensi on, benign Essential hypertensi on, benign Disease Active 2014-07 00:00: 00 General acute hospital Allergies, Adverse Reactions, Alerts Allergy Name Allergy Type Status Severity Reaction(s) Onset Date Inactive Date Treating Clinician Comments Source NO KNOWN ALLERGIE S Drug Class Active General acute hospital Social History Social Habit Start Date Stop Date Quantity Comments Source Gender identity [facility] Sexual orientation U [facility] Alcohol intake 2023-05-02 00:00:00 2023-05-02 00:00:00 1.71 /d [facility] Alcoholic beverage intake 2023-05-02 00:00:00 2023-05-02 00:00:00 1.71 /d [facility] History of Social function 2023-04-29 00:00:00 2023-04-29 00:00:00 [facility] Exposure to SARS-CoV-2 (event) 2022-06-03 00:00:00 2022-06-13 07:12:00 Not sure [facility] Tobacco use and exposure 2022-05-23 00:00:00 2022-05-23 00:00:00 Smokeless tobacco non-user [facility] Cigarettes smoked current (pack per day) - Reported 2022-05-23 00:00:00 2022-05-23 00:00:00 [facility] Cigarette pack-years 2022-05-23 00:00:00 2022-05-23 00:00:00 [facility] Tobacco Comment 2022-05-23 00:00:00 2022-05-23 00:00:00 quit 25 years ago [facility] History of tobacco use 1984-05-06 00:00:00 1989-05-06 00:00:00 Cigarette Smoker [facility] Sex assigned at 1965 00:00:00 1965 00:00:00 [facility] Smoking Status Start Date Stop Date Source Ex-smoker 2022-05-23 00:00:00 2022-05-23 00[facility]00[facility]00 [facility] Medications Ordered Medication Name Filled Medication Name Start Date Stop Date Current Medication? Ordering Clinician Indication Dosage Frequency Signature (SIG) Comments Components Source omeprazole 40 mg capsule 08-28 15:56: 03 Yes 40mg Take 1 capsule by mouth every other day. General acute hospital VALSARTAN 160 mg tablet 08-05 00:00: 00 Yes [id number] TAKE 1 TABLET BY MOUTH EVERY DAY General acute hospital VALSARTAN 160 mg tablet 2022-07 00:00: 00 08-05 00:00 :00 No [id number] TAKE 1 TABLET BY MOUTH EVERY DAY General acute hospital VALSARTAN 160 mg tablet 02-04 00:00: 00 04-29 00:00 :00 No [id number] TAKE 1 TABLET BY MOUTH EVERY DAY General acute hospital VALSARTAN 160 mg tablet 5-11 00:00: 00 02-04 00:00 :00 No [id number] TAKE 1 TABLET BY MOUTH EVERY DAY General acute hospital VALSARTAN 160 mg tablet 2-14 00:00: 00 Yes [id number] TAKE 1 TABLET BY MOUTH EVERY DAY General acute hospital ciprofloxac in HCl (CIPRO) 500 mg tablet 2021-07 2- 00:00: 00 05-02 00:00 :00 No [id number] 500mg Take 1 tablet by mouth every 12 (twelve) hours. General acute hospital VALSARTAN 160 mg tablet 2021-07 1- 00:00: 00 08-21 00:00 :00 No [id number] TAKE 1 TABLET BY MOUTH EVERY DAY General acute hospital triamcinolo ne acetonide (KENALOG) injection 40 mg 2021-07 0- 20:15: 00 04-16 19:23 :00 No [id number] 40mg [facility] methylPREDN ISolone acetate (DEPO-MEDRO L) injection 80 mg 2021-07 0- 20:00: 00 04-16 19:24 :00 No [id number] 80mg [facility] VALSARTAN 160 mg tablet 8- 00:00: 00 05-28 00:00 :00 No [id number] TAKE 1 TABLET BY MOUTH EVERY DAY General acute hospital valsartan 160 mg tablet 5- 00:00: 00 Yes [id number] 160mg Take 1 tablet by mouth daily. General acute hospital valsartan 160 mg tablet 1-19 00:00: 00 11-14 00:00 :00 No [id number] 160mg Take 1 tablet by mouth daily. General acute hospital VALSARTAN 160 mg tablet 2020-07 2-20 00:00: 00 Yes [id number] TAKE 1 TABLET BY MOUTH EVERY DAY General acute hospital gabapentin 300 mg capsule 2020-07 0-18 00:00: 00 04-16 00:00 :00 No [id number] 300mg Take 1 capsule by mouth 2 (two) times daily. General acute hospital VALSARTAN 160 mg tablet 2020-07 0-04 00:00: 00 06-26 00:00 :00 No [id number] TAKE 1 TABLET BY MOUTH EVERY DAY General acute hospital valsartan 160 mg tablet 4-13 00:00: 00 04-10 00:00 :00 No [id number] 160mg Take 1 tablet by mouth daily. General acute hospital doxycycline hyclate 100 mg tablet 7-13 00:00: 00 04-22 00:00 :00 No [id number] 100mg Take 1 tablet by mouth 2 (two) times daily. General acute hospital olmesartan 20 mg tablet 0 4-07 00:00: 00 03-22 00:00 :00 No [id number] 20mg Take 1 tablet by mouth daily. General acute hospital Vital Signs Vital Name Observation Time Observation Value Comments Ann zabala Systolic blood pressure 2023-08-28 21:58:00 164 mm[Hg] [facility] Diastolic blood pressure 2023-08-28 21:58:00 93 mm[Hg] [facility] Heart rate 2023-08-28 21:58:00 61 /min [facility] Body height 2023-08-28 21:58:00 177.8 cm [facility] Body weight 2023-08-28 21:58:00 92.488 kg [facility] BMI 2023-08-28 21:58:00 29.26 kg/m2 [facility] Oxygen saturation in Arterial blood by Pulse oximetry 2023-08-28 21:58:00 95 /min [facility] Systolic blood pressure 2023-07-10 15:17:00 178 mm[Hg] [facility] Diastolic blood pressure 2023-07-10 15:17:00 103 mm[Hg] [facility] Heart rate 2023-07-10 15:17:00 62 /min [facility] Oxygen saturation in Arterial blood by Pulse oximetry 2023-07-10 15:17:00 96 /min [facility] Respiratory rate 2023-07-10 15:10:00 18 /min [facility] Body height 2023-07-10 15:10:00 177.8 cm [facility] Body weight 2023-07-10 15:10:00 90.918 kg [facility] BMI 2023-07-10 15:10:00 28.76 kg/m2 [facility] Systolic blood pressure 2023-05-02 12:05:00 158 mm[Hg] [facility] Diastolic blood pressure 2023-05-02 12:05:00 90 mm[Hg] [facility] Heart rate 2023-05-02 12:04:00 65 /min [facility] Body height 2023-05-02 12:04:00 177.8 cm [facility] Body weight 2023-05-02 12:04:00 88.361 kg [facility] BMI 2023-05-02 12:04:00 27.95 kg/m2 [facility] Oxygen saturation in Arterial blood by Pulse oximetry 2023-05-02 12:04:00 99 /min [facility] Systolic blood pressure 2023-04-29 17:11:00 159 mm[Hg] [facility] Diastolic blood pressure 2023-04-29 17:11:00 96 mm[Hg] [facility] Heart rate 2023-04-29 17:10:00 63 /min Unive [facility] Respiratory rate 2023-04-29 17:10:00 18 /min [facility] Body height 2023-04-29 17:10:00 177.8 cm Univ [facility] Body weight 2023-04-29 17:10:00 89.54 kg Univ [facility] BMI 2023-04-29 17:10:00 28.32 kg/m2 [facility] Oxygen saturation in Arterial blood by Pulse oximetry 2023-04-29 17:10:00 96 /min [facility] Systolic blood pressure 2022-06-13 16:04:00 136 mm[Hg] [facility] Diastolic blood pressure 2022-06-13 16:04:00 80 mm[Hg] [facility] Heart rate 2022-06-13 16:04:00 59 /min Unive [facility] Body height 2022-06-13 16:04:00 177.8 cm [facility] Body weight 2022-06-13 16:04:00 86.047 kg Univ [facility] BMI 2022-06-13 16:04:00 27.22 kg/m2 [facility] Oxygen saturation in Arterial blood by Pulse oximetry 2022-06-13 16:04:00 97 /min [facility] Systolic blood pressure 2022-05-23 15:00:00 149 mm[Hg] [facility] Diastolic blood pressure 2022-05-23 15:00:00 90 mm[Hg] [facility] Heart rate 2022-05-23 14:59:00 54 /min Unive [facility] Body height 2022-05-23 14:59:00 177.8 cm [facility] Body weight 2022-05-23 14:59:00 87 kg [facility] BMI 2022-05-23 14:59:00 27.52 kg/m2 [facility] Oxygen saturation in Arterial blood by Pulse oximetry 2022-05-23 14:59:00 99 /min [facility] Systolic blood pressure 2022-04-16 19:09:00 152 mm[Hg] [facility] Diastolic blood pressure 2022-04-16 19:09:00 95 mm[Hg] [facility] Heart rate 2022-04-16 19:08:00 63 /min [facility] Body weight 2022-04-16 19:08:00 90.538 kg [facility] BMI 2022-04-16 19:08:00 28.64 kg/m2 [facility] Oxygen saturation in Arterial blood by Pulse oximetry 2022-04-16 19:08:00 98 /min [facility] Systolic blood pressure 2021-04-24 15:00:00 135 mm[Hg] [facility] Diastolic blood pressure 2021-04-24 15:00:00 78 mm[Hg] [facility] Body weight 2021-04-24 14:55:00 87.091 kg Univ [facility] BMI 2021-04-24 14:55:00 27.55 kg/m2 [facility] Procedures Procedure Date / Time Performed Performing Clinician Source DME/SUPPLY JUSTIFICATION 2023-08-29 06:01:00 Doc tor Unassigned, [place] [facility] DME/SUPPLY JUSTIFICATION 2023-08-12 06:01:00 Doc tor Unassigned, [place] [facility] SLEEP STUDY DATA REPORT 2023-07-30 06:01:00 Doct or Unassigned, [place] [facility] INSURANCE CORRESPONDENCE 2023-07-11 06:01:00 Doc tor Unassigned, [place] [facility] REFERRAL- REQUEST/RESPONSE 2022-12-14 05:01:00 Doctor Unassigned, [place] [facility] EXTERNAL PROVIDER RECORDS 2021-08-01 06:01:00 Do ctor Unassigned, [place] [facility] Encounters Start Date/Time End Date/Time Encounter Type Admission Type Attending [facility] Facility Care Department Encounter ID Source 2024-05-12 00:00:00 2024-06-13 18:21:18 Patient Secure Msg Doctor Unassigned, [place] Doctor Unassigned, [place] [facility] 1.0.114 350.1.13.10 4.2.7.2.686 [id number] General acute hospital 2024-05-08 00:00:00 2024-05-15 08:56:03 Patient Secure Msg Doctor Unassigned, [place] Doctor Unassigned, [place] [facility] 1.84.114 350.1.13.10 4.2.7.2.686 [id number] General acute hospital 2024-05-12 00:00:00 2024-05-12 09:57:40 Telephone Kofi Espinoza [facility] ..114 350.1.13.10 4.2.7.2.686 [id number] General acute hospital 2024-04-30 00:00:00 2024-04-30 14:53:22 Telephone Kofi Espinoza [facility] 1.84.114 350.1.13.10 4.2.7.2.686 [id number] General acute hospital 2023-08-29 00:00:00 2023-08-29 00:00:00 Telephone Kofi Espinoza [facility] 1.2.840.114 350.1.13.10 4.2.7.2.686 [id number] General acute hospital 2023-08-29 00:00:00 2023-08-29 00:00:00 Orders Only Doctor Unassigned, [place] [facility] 1.2840.114 350.1.13.10 4.2.7.2.686 [id number] General acute hospital 2023-08-28 16:30:00 2023-08-28 17:00:00 Office Visit Kofi Espinoza [facility] 1.2.840.114 350.1.13.10 4.2.7.2.686 [id number] General acute hospital 2023-08-28 16:30:00 2023-08-28 16:30:00 Outpatient R KOFI ESPINOZA [facility] [id number] General acute hospital 2023-08-12 00:00:00 2023-08-12 00:00:00 Telephone Kofi Espinoza [facility] 1.2.840.114 350.1.13.10 4.2.7.2.686 [id number] General acute hospital 2023-08-12 00:00:00 2023-08-12 00:00:00 Orders Only Doctor Unassigned, [place] [facility] 1.2840.114 350.1.13.10 4.2.7.2.686 [id number] General acute hospital 2023-08-04 00:00:00 2023-08-04 00:00:00 Eliot Pamela Chase [facility] 1.2840.114 350.1.13.10 4.2.7.2.686 [id number] General acute hospital 2023-07-30 14:30:00 2023-07-30 14:45:00 Public Information Officer Visit [facility] Kofi Espinoza [facility] 1.0.114 350.1.13.10 4.2.7.2.686 [id number] General acute hospital 2023-07-30 14:30:00 2023-07-30 14:30:00 Outpatient R KOFI ESPINOZA [facility]AH[facility] [id number] General acute hospital 2023-07-30 00:00:00 2023-07-30 00:00:00 Orders Only Doctor Unassigned, [place] [facility] 1.20.114 350.1.13.10 4.2.7.2.686 [id number] General acute hospital 2023-07-11 00:00:00 2023-07-11 00:00:00 Orders Only Doctor Unassigned, [place] [facility] 1.2840.114 350.1.13.10 4.2.7.2.686 [id number] General acute hospital 2023-07-10 09:30:00 2023-07-10 10:00:00 Office Visit Kofi Espinoza [facility] 1.2840.114 350.1.13.10 4.2.7.2.686 [id number] General acute hospital 2023-07-10 09:30:00 2023-07-10 09:30:00 Outpatient R KOFI ESPINOZA [facility] [id number] General acute hospital 2023-06-18 00:00:00 2023-06-18 00:00:00 Telephone Kofi Espinoza [facility] NAL BUILDING 1..840.114 350.1.13.10 4.2.7.2.686 [id number] General acute hospital 2023-05-27 00:00:00 2023-05-27 00:00:00 Patient Secure Msg Doctor Unassigned, [place] [facility] 1..840.114 350.1.13.10 4.2.7.2.686 [id number] General acute hospital 2023-05-02 07:15:00 2023-05-02 07:30:00 Office Visit Pamela Chase [facility] 1..840.114 350.1.13.10 4.2.7.2.686 [id number] General acute hospital 2023-05-02 07:15:00 2023-05-02 07:15:00 Outpatient R PAMELA CHASE [facility] [id number] General acute hospital 2023-05-01 00:00:00 2023-05-01 00:00:00 Patient Secure Msg Doctor Unassigned, [place] [facility] 1.2.840.114 350.1.13.10 4.2.7.2.686 [id number] General acute hospital 2023-04-29 12:15:00 2023-04-29 12:30:44 Outpatient R PAMELA HCASE [facility] [id number] General acute hospital 2023-04-29 12:15:00 2023-04-29 12:30:00 [facility] 1.2.840.114 350.1.13.10 4.2.7.2.686 [id number] General acute hospital 2023-04-29 00:00:00 2023-04-29 00:00:00 Patient Secure Msg Doctor Unassigned, [place] [facility] 1.840.114 350.1.13.10 4.2.7.2.686 [id number] General acute hospital 2023-04-28 00:00:00 2023-04-28 00:00:00 Refill Salvatore Pamela [facility] 1..114 350.1.13.10 4.2.7.2.686 [id number] General acute hospital 2023-02-02 00:00:00 2023-02-02 00:00:00 Refill Salvatore Pamela [facility] 1..114 350.1.13.10 4.2.7.2.686 [id number] General acute hospital 2023-01-15 00:00:00 2023-01-15 00:00:00 Telephone Salvatore Pamela [facility] 1.114 350.1.13.10 4.2.7.2.686 [id number] General acute hospital 2022-12-14 00:00:00 2022-12-14 00:00:00 Orders Only Doctor Unassigned, [place] [facility] 1.20.114 350.1.13.10 4.2.7.2.686 [id number] General acute hospital 2022-11-15 00:00:00 2022-11-15 00:00:00 [facility] 1.2.840.114 350.1.13.10 4.2.7.2.686 [id number] General acute hospital 2022-08-18 00:00:00 2022-08-18 00:00:00 Refill Pamela Chase [facility] 1.2840.114 350.1.13.10 4.2.7.2.686 [id number] General acute hospital 2022-06-14 00:00:00 2022-06-14 00:00:00 Patient Secure Msg Doctor Unassigned, [place] [facility] 1..114 350.1.13.10 4.2.7.2.686 [id number] General acute hospital 2022-06-13 10:15:00 2022-06-13 10:30:00 [facility] 1.840114 350.1.13.10 4.2.7.2.686 [id number] General acute hospital 2022-06-13 10:15:00 2022-06-13 10:15:00 Outpatient R SALVATORE PAMELA [facility] [id number] General acute hospital 2022-06-07 00:00:00 2022-06-07 00:00:00 Patient Secure Msg Doctor Unassigned, [place] [facility] 1.284114 350.1.13.10 4.2.7.2.686 [id number] General acute hospital 2022-05-26 00:00:00 2022-05-26 00:00:00 [facility] 1.840.114 350.1.13.10 4.2.7.2.686 [id number] General acute hospital 2022-05-23 09:30:00 2022-05-23 09:30:00 Public Information Officer Visit Lab, William ChasePamela [facility] 1..840.114 350.1.13.10 4.2.7.2.686 [id number] General acute hospital 2022-05-23 09:00:00 2022-05-23 09:11:15 Outpatient R SALVATORE PAMELA [facility] [id number] General acute hospital 2022-05-23 09:00:00 2022-05-23 09:11:15 Office Visit SalvatorePamela [facility] 1..840.114 350.1.13.10 4.2.7.2.686 [id number] General acute hospital 2022-05-23 00:00:00 2022-05-23 00:00:00 Patient Secure Msg Doctor Unassigned, [place] [facility] 1..840.114 350.1.13.10 4.2.7.2.686 [id number] General acute hospital 2022-05-15 00:00:00 2022-05-15 00:00:00 Telephone Chase, Pamela [facility] 1..840.114 350.1.13.10 4.2.7.2.686 [id number] General acute hospital 2022-04-16 14:30:00 2022-04-16 15:06:50 Outpatient R PAMELA CHASE [facility] [id number] General acute hospital 2022-04-16 14:30:00 2022-04-16 15:06:50 Office Visit Salvatore Pamela [facility] 1.840.114 350.1.13.10 4.2.7.2.686 [id number] General acute hospital 2022-03-02 00:00:00 2022-03-02 00:00:00 Refill Pamela Chase [facility] 1.840.114 350.1.13.10 4.2.7.2.686 [id number] General acute hospital 2021-11-14 00:00:00 2021-11-14 00:00:00 Refill Doctor Unassigned, [place] [facility] 1..114 350.1.13.10 4.2.7.2.686 [id number] General acute hospital 2021-08-01 00:00:00 2021-08-01 00:00:00 Orders Only Doctor Unassigned, [place] [facility] 1.0.114 350.1.13.10 4.2.7.2.686 [id number] General acute hospital 2021-07-26 00:00:00 2021-07-26 00:00:00 Patient Secure Msg Pamela Chase [facility] 1..114 350.1.13.10 4.2.7.2.686 [id number] General acute hospital 2021-07-21 00:00:00 2021-07-21 00:00:00 Refill Doctor Unassigned, [place] [facility] ONE 1..114 350.1.13.10 4.2.7.2.686 [id number] General acute hospital 2021-06-26 00:00:00 2021-06-26 00:00:00 Refill Pamela Chase [facility] OFF[facility]ILD[facility] ONE 1..114 350.1.13.10 4.2.7.2.686 [id number] General acute hospital 2021-04-24 09:55:20 2021-04-24 10:10:20 Office Visit Salvatore Pamela [facility] 1.840.114 350.1.13.10 4.2.7.2.686 [id number] General acute hospital 2021-04-24 10:00:00 2021-04-24 10:00:00 Outpatient R ZACK CHASEONY [facility] [id number] General acute hospital 2021-04-24 00:00:00 2021-04-24 00:00:00 Refill Doctor Unassigned, [place] [facility] 1.84114 350.1.13.10 4.2.7.2.686 [id number] General acute hospital 2021-04-13 00:00:00 2021-04-13 00:00:00 Patient Secure Msg Almeida [facility] Medical Office Building 1.114 350.1.13.10 4.2.7.2.686 [id number] General acute hospital 2021-04-08 00:00:00 2021-04-08 00:00:00 Refill Pamela Chase [facility] Office Building One 1..114 350.1.13.10 4.2.7.2.686 [id number] General acute hospital 2021-04-06 00:00:00 2021-04-06 00:00:00 Patient Secure [facility] 1.84.114 350.1.13.10 4.2.7.2.686 [id number] General acute hospital 2021-04-06 00:00:00 2021-04-06 00:00:00 Patient Secure Msg Doctor Unassigned, [place] [facility] BUILDING [id number] [id number] [id number] [id number] General acute hospital 2021-04-05 00:00:00 2021-04-05 00:00:00 Patient Secure Msg Doctor Unassigned, [place] [facility] OFFICE BUILDING ONE 1.2.840.114 350.1.13.10 4.2.7.2.686 [id number] General acute hospital 2021-03-02 00:00:00 2021-03-02 00:00:00 Patient Secure Msg Doctor Unassigned, [place] [facility] OFFICE BUILDING ONE 1.2.840.114 350.1.13.10 4.2.7.2.686 [id number] General acute hospital 2021-01-17 00:00:00 2021-01-17 00:00:00 [facility] 1.2.840.114 350.1.13.10 4.2.7.2.686 [id number] General acute hospital 2021-01-14 00:00:00 2021-01-14 00:00:00 [facility] 1.2.840.114 350.1.13.10 4.2.7.2.686 [id number] General acute hospital 2021-01-13 09:00:00 2021-01-13 09:00:00 [facility] [id number] General acute hospital 2021-01-12 00:00:00 2021-01-12 00:00:00 Patient Secure [facility] 1.2840.114 350.1.13.10 4.2.7.2.686 [id number] General acute hospital 2021-01-11 11:12:35 2021-01-11 11:27:35 Public Information Officer Visit 2, Adc Lab Juan Pablo [facility] Building 1.2.840.114 350.1.13.10 4.2.7.2.686 [id number] General acute hospital 2021-01-11 10:28:25 2021-01-11 11:02:45 Office Visit Juan Pablo [facility] Building 1.2840.114 350.1.13.10 4.2.7.2.686 [id number] General acute hospital 2021-01-11 10:40:00 2021-01-11 10:40:00 Outpatient R JUAN PABLO [facility] [id number] General acute hospital 2021-01-04 00:00:00 2021-01-04 00:00:00 Patient Secure Msg Doctor Unassigned, [place] [facility] 1.2840.114 350.1.13.10 4.2.7.2.686 [id number] General acute hospital 2021-01-03 07:00:24 2021-01-03 07:15:24 Office Visit Pamela Chase [facility] Office Building One 1.2840.114 350.1.13.10 4.2.7.2.686 [id number] General acute hospital 2021-01-03 07:00:00 2021-01-03 07:00:00 Outpatient R PAMELA CHASE [facility] [id number] General acute hospital 2020-11-01 07:22:26 2020-11-01 08:14:53 Office Visit Pamela Chase [facility] Office Building One 1.114 350.1.13.10 4.2.7.2.686 [id number] General acute hospital 2020-11-01 07:47:20 2020-11-01 08:07:20 Public Information Officer Visit Lab, Adc Fam Pob I Salvatore [facility] Office Building One 1.114 350.1.13.10 4.2.7.2.686 [id number] General acute hospital 2020-11-01 07:30:00 2020-11-01 07:30:00 Outpatient ZACK WOODARDONY [facility] [id number] General acute hospital 2020-11-01 00:00:00 2020-11-01 00:00:00 Patient Secure Msg Doctor Unassigned, [place] [facility] OFFICE BUILDING ONE 1.114 350.1.13.10 4.2.7.2.686 [id number] General acute hospital 2020-10-18 00:00:00 2020-10-18 00:00:00 Patient Secure Msg Salvatore [facility] Office Building One 1.114 350.1.13.10 4.2.7.2.686 [id number] General acute hospital 2020-10-06 13:00:00 2020-10-06 13:00:00 Outpatient Garcia CHASE PAMELA [facility] [id number] General acute hospital 2020-10-06 12:42:51 2020-10-06 12:57:51 Office Visit Pamela Chase [facility] Office Building One 1.114 350.1.13.10 4.2.7.2.686 [id number] General acute hospital 2020-10-06 00:00:00 2020-10-06 00:00:00 Pamela Villeda [facility] Building 1.2840.114 350.1.13.10 4.2.7.2.686 [id number] General acute hospital 2020-10-06 00:00:00 2020-10-06 00:00:00 Telephone Doctor Unassigned, [place] [facility] BUILDING 1.2840.114 350.1.13.10 4.2.7.2.686 [id number] General acute hospital 2020-10-03 00:00:00 2020-10-03 00:00:00 Patient Secure Msg Doctor Unassigned, [place] [facility] OFFICE BUILDING ONE 1.840.114 350.1.13.10 4.2.7.2.686 [id number] General acute hospital 2020-09-20 00:00:00 2020-09-20 00:00:00 Patient Outreach Chacho Grajeda [facility] 1.840.114 350.1.13.10 4.2.7.2.686 [id number] General acute hospital 2020-09-09 00:00:00 2020-09-09 00:00:00 Pamela Villeda [facility] Building 1.2840.114 350.1.13.10 4.2.7.2.686 [id number] General acute hospital 2020-06-17 00:00:00 2020-06-17 00:00:00 Patient Secure Msg Salvatore [facility] Office Building One 1.2840.114 350.1.13.10 4.2.7.2.686 [id number] General acute hospital 2020-06-17 00:00:00 2020-06-17 00:00:00 Patient Secure Msg Doctor Unassigned, [place] [facility] OFFICE BUILDING ONE 1.2114 350.1.13.10 4.2.7.2.686 [id number] General acute hospital 2020-05-18 00:00:00 2020-05-18 00:00:00 Patient Secure g Pamela Chase [facility] Office Building One 1.114 350.1.13.10 4.2.7.2.686 [id number] General acute hospital 2020-04-22 08:53:14 2020-04-22 09:48:45 Office Visit Nuzhat Boston [facility] Office Building One 1..114 350.1.13.10 4.2.7.2.686 [id number] General acute hospital 2020-04-22 09:00:00 2020-04-22 09:00:00 Outpatient R NUZHAT BOSTON [facility] [id number] General acute hospital 2020-03-22 00:00:00 2020-03-22 00:00:00 Refill Salvatore Pamela [facility] Building 1.84.114 350.1.13.10 4.2.7.2.686 [id number] General acute hospital 2020-01-18 16:15:00 2020-01-18 16:15:00 Outpatient R ZACK CHASEONY [facility] [id number] General acute hospital 2020-01-18 15:50:42 2020-01-18 16:05:42 Office Visit Pamela Chase [facility] Building 1.84.114 350.1.13.10 4.2.7.2.686 [id number] General acute hospital 2020-01-18 00:00:00 2020-01-18 00:00:00 Patient Secure Msg Doctor Unassigned, [place] [facility] BUILDING 1.2840.114 350.1.13.10 4.2.7.2.686 [id number] General acute hospital 2019-10-15 00:00:00 2019-10-15 00:00:00 Patient Secure Msg Doctor Unassigned, [place] [facility] Office Building One 1.2840.114 350.1.13.10 4.2.7.2.686 [id number] General acute hospital 2019-10-13 08:45:00 2019-10-13 08:45:00 Outpatient R PAMELA CHASE [facility] [id number] General acute hospital 2019-10-13 08:01:25 2019-10-13 08:16:25 Telemedici ne Visit Pamela Chase [facility] Building 1.20.114 350.1.13.10 4.2.7.2.686 [id number] General acute hospital 2019-10-13 00:00:00 2019-10-13 00:00:00 Telephone Pamela Chase [facility] Office Building One 1..114 350.1.13.10 4.2.7.2.686 [id number] General acute hospital 2019-09-24 00:00:00 2019-09-24 00:00:00 Patient Secure Msg Salv[facility] Office Building One 1.20.114 350.1.13.10 4.2.7.2.686 [id number] General acute hospital 2019-08-21 00:00:00 2019-08-21 00:00:00 [facility] 1..114 350.1.13.10 4.2.7.2.686 [id number] General acute hospital 2019-07-23 00:00:00 2019-07-23 00:00:00 Patient Secure Msg Pamela Chase [facility] Office Building One 1.2840.114 350.1.13.10 4.2.7.2.686 [id number] General acute hospital 2019-07-22 08:20:04 2019-07-22 08:57:36 Office Visit Pamela Chase [facility] Office Building One 1.2114 350.1.13.10 4.2.7.2.686 [id number] General acute hospital 2019-07-22 00:00:00 2019-07-22 00:00:00 Orders Only Doctor Unassigned, [place] [facility] 1.284.114 350.1.13.10 4.2.7.2.686 [id number] General acute hospital Notes Date/Time Note Provider Source 2024-05-15 08:55:42 Images from the original note were not included. Msg sent back via [facility] May 12, 2024 Kofi Espinoza MD 05/12/24 9:57 AM Note The patient's question is if his psychological conditions might have caused his Obstructive Sleep Apnea (GAVIOTA). In my professional opinion, I cannot see how a psychological condition can cause a physical condition like GAVIOTA. Thus, I do not believe that his depression/anxiety caused his GAVIOTA. ThanksDr. Marin Mccoy MA [facility] 2024-05-12 09:52:07 The patient's question is if his psychological conditions might have caused his Obstructive Sleep Apnea (GAVIOTA). In my professional opinion, I cannot see how a psychological condition can cause a physical condition like GAVIOTA. Thus, I do not believe that his depression/anxiety caused his GAVIOTA. Thanks, Dr. Marin STICS ENGINEERING MANAGER SLEEP MEDICINE-PHYSICIAN/INTE [facility] 2024-05-12 09:09:00 Pt is now asking if his sleep apnea is in anyway connected to his depression and anxiety. Pt states if it is, then it could somehow be linked to his time in the and is investigating this to assist with his current benefits. Will forward to Dr. Espinoza for review. Garner RN [facility] 2024-05-08 09:18:50 Will mychart pt to [facility]. He is [employer] active. Fatou Mccoy MA [facility] 2024-04-30 14:51:39 Joel Lainez, notify patient that his sleep apnea is not caused by his tinnitus. These are 2 separate conditions. Thanks, Dr. Marin SLEEP MEDICINE-PHYSICIAN/INTE [facility] 2024-04-30 14:23:46 Per pt asking if Dr. Espinoza can review his sleep apnea diagnosis and if it is possible it is secondary caused due to his Tinnitus Dx. He states if so. Wants a letter so he can turn into his disability outsole caser for assistance. Pt is [facility] active will return call [facility] for update. Fatou Mccoy MA [facility] 2023-08-29 14:10:08 [facility] fax to [phone] & [phone] will scan into patient chart along with the confirmation Attempted to call patient LVM to inform him the [facility] were [facility] the [facility] and also if he can let us know when he receive the machine so we can document in his chart. Ann MA [facility] 2023-08-12 10:54:10 Last visit [facility] as requested for [facility] review. Mccoy MA [facility]
[2024-08-20] MEDS ORDERED: KETOROLAC 30 MG/ML INJ ONE (09:44)
[2024-08-20] MEDS ORDERED: DIAZEPAM 5 MG TABLET ONE (09:44)
[2024-08-20] MEDS ORDERED: ACETAMINOPHEN 500 MG TAB ONE (09:44)
[2024-08-20] MEDS ORDERED: LIDOCAINE 4% PATCH ONE (09:45)
--- NOTE | 2024-08-20 10:32 | RAD REPORT ---
EXAMINATION: LUMBAR SPINE MULTIPLE VIEWS CLINICAL INDICATION: Male, 59 years old. LOWER BACK PAIN TECHNIQUE: Multiple views of the lumbar spine were obtained. COMPARISON: No prior exam. FINDINGS: For purposes of this dictation, it is assumed that there are 5 lumbar type vertebral bodies. ALIGNMENT: There is normal alignment of the lumbar spine. BONES: Vertebral bodies are normal in height. No aggressive osseous lesions. DISCS: Mild lower lumbar disc thinning is present. IMPRESSION: No acute lumbar spine abnormality. Mild lower lumbar spondylosis.
--- NOTE | 2024-08-20 10:34 | ER ---
Nurse's Notes [facility] Name: Prabhu Patel Age: 59 yrs Sex: Male : 1965 Arrival Date: 08/20/2024 Time: 09:29 Bed 4 Private MD: Diagnosis: Low back pain Presentation: 08/20 09:37 Chief complaint: Patient states: Low back pain started after stepping off a brick ll1 yesterday. No fevers or urinary symptoms. Coronavirus screen: Client denies travel out of the [place] in the last 14 days. At this time, the client does not indicate any symptoms associated with coronavirus-19. Ebola Screen: Patient denies travel to an Ebola-affected area in the 21 days before illness onset. Initial Sepsis Screen: Does the patient meet any 2 criteria? No. Patient's initial sepsis screen is negative. Does the patient have a suspected source of infection? No. Patient's initial sepsis screen is negative. Risk Assessment: Do you want to hurt yourself or someone else? Patient reports no desire to harm self or others. Onset of symptoms was August 19, 2024. 09:37 Method Of Arrival: Ambulatory ll1 09:37 Acuity: HARPAL 4 ll1 Triage Assessment: 09:39 General: Appears uncomfortable, Behavior is calm, cooperative, appropriate for age. ll1 Pain: Complains of pain in low back Pain currently is 9 out of 10 on a pain scale. Quality of pain is described as aching, sharp, Aggravated by increased activity, repositioning. Musculoskeletal: Reports pain in back. Historical: - Allergies: 09:33 No Known Allergies; ll1 - PMHx: 09:33 Hypertension; tennis elbow; ll1 - PSHx: 09:37 hernia repair; ll1 - Immunization history:: Adult Immunizations up to date. - Infectious Disease History:: Denies. - Social history:: Smoking status: Patient denies any tobacco usage or history of. Screenin:37 [facility] ED Fall Risk Assessment (Adult) History of falling in the last 3 months, ph including since admission No falls in past 3 months (0 pts) Confusion or Disorientation No (0 pts) Intoxicated or Sedated No (0 pts) Impaired Gait No (0 pts) Mobility Assist Device Used No (0 pt) Altered Elimination No (0 pt) Score/Fall Risk Level 0 - 2 = Low Risk Oriented to surroundings, Maintained a safe environment, Hourly rounding (assess needs \T\ fall precautionary measures) done. Abuse screen: Denies threats or abuse. Denies injuries from another. Nutritional screening: No deficits noted. Tuberculosis screening: No symptoms or risk factors identified. Assessment: 09:55 General: Appears in no apparent distress. comfortable, well groomed, Behavior is calm, ph cooperative, appropriate for age. Pain: Complains of pain in right low back. Neuro: Level of Consciousness is awake, alert, obeys commands, Oriented to person, place, time, situation. Cardiovascular: Capillary refill < 3 seconds in bilateral fingers Patient's skin is warm and dry. Derm: Skin is pink, warm \T\ dry. Vital Signs: 09:37 BP 136 / 85; Pulse 66; Resp 17; Temp 97.8; Pulse Ox 95% on R/A; Weight 81.65 kg; Height ll1 5 ft. 10 in. ; Pain 9/10; 10:49 BP 128 / 78; Pulse 64; Resp 18; Temp 97.9; Pulse Ox 98% on R/A; ph 09:37 Body Mass Index 25.83 (81.65 kg, 177.8 cm) ll1 09:37 Pain Scale: Adult ll1 ED Course: 09:32 Patient arrived in ED. im 09:33 Huang De La Cruz MD is Attending Physician. ec2 09:33 Arm band placed on Patient placed in an exam room, on a stretcher. ll1 09:37 Patient has correct armband on for positive identification. Bed in low position. Call ph light in reach. Side rails up X 1. Pulse ox on. NIBP on. Door closed. Noise minimized. 09:39 Triage completed. ll1 09:47 Amy Raymundo, RN is Primary Nurse. ph 09:55 No provider procedures requiring assistance completed. Patient did not have IV access ph during this emergency room visit. 10:06 Lumbar Spine (3 Views) XRAY In Process Unspecified. EDMS Administered Medications: 09:54 Drug: Lidoderm Topical Patch 5 % (700 mg/patch) 1 patches Topical once; leave on for 12 ph hours; cover most painful area; may cut into smaller pieces Route: Topical; Site: affected area; 10:48 Follow up: Response: No adverse reaction ph 09:54 Drug: Ketorolac IM 30 mg IM once Route: IM; Site: right deltoid; ph 10:48 Follow up: Response: No adverse reaction ph 09:54 Drug: Diazepam PO 10 mg PO once Route: PO; ph 10:48 Follow up: Response: No adverse reaction ph 09:54 Drug: Acetaminophen PO 1000 mg PO once Route: PO; ph 10:48 Follow up: Response: No adverse reaction ph Medication: 09:55 VIS not applicable for this client. ph Outcome: 10:34 Discharge ordered by MD. palomares 10:49 Discharged to home ambulatory, with significant other, ph 10:49 Condition: good 10:49 Discharge instructions given to patient, Instructed on discharge instructions, follow up and referral plans. medication usage, Demonstrated understanding of instructions, follow-up care, medications, Prescriptions given X 1, 10:49 Patient left the ED. ph Signatures: Dispatcher [employer] Amy Manrique RN RN Yesenia Martinez RN RN 1 Martina Roche Edwin, MD MD ec2
--- NOTE | 2024-08-20 10:34 | EDPHYS ---
Physician Documentation [facility] Name: Prabhu Patel Age: 59 yrs Sex: Male : 1965 Arrival Date: 08/20/2024 Time: 09:29 Bed 4 Private MD: ED Physician Huang De La Cruz HPI: 08/20 09:40 This 59 yrs old Male presents to ER via Ambulatory with complaints of Low Back ec2 Pain. 09:40 Patient arrives today for evaluation of right low back pain. Patient reports that he ec2 has been experiencing pain since yesterday when he awkwardly stepped off a surface. No falls injuries or trauma. Reports history of back pain. Patient reports he took cyclobenzaprine with minimal alleviation in symptoms.. Historical: - Allergies: 09:33 No Known Allergies; ll1 - PMHx: 09:33 Hypertension; tennis elbow; ll1 - PSHx: 09:37 hernia repair; ll1 - Immunization history:: Adult Immunizations up to date. - Infectious Disease History:: Denies. - Social history:: Smoking status: Patient denies any tobacco usage or history of. ROS: 09:40 Constitutional: as per hpi ec2 Exam: 09:40 Constitutional: GEN: NAD Head: atraumatic Eyes: EOMI Ears: External ears are ec2 normal. CV: regular rate LUNGS: no respiratory distress ABD: non-distended SKIN: no evidence of rashes MSK: no evidence of trauma, right lateral back TTP, no deformities or crepitus. No C/T/L-spine TTP or step-offs Vital Signs: 09:37 BP 136 / 85; Pulse 66; Resp 17; Temp 97.8; Pulse Ox 95% on R/A; Weight 81.65 kg; Height ll1 5 ft. 10 in. ; Pain 9/10; 10:49 BP 128 / 78; Pulse 64; Resp 18; Temp 97.9; Pulse Ox 98% on R/A; ph 09:37 Body Mass Index 25.83 (81.65 kg, 177.8 cm) ll1 09:37 Pain Scale: Adult ll1 MDM: 09:34 Medical Screening Exam initiated ec2 09:41 Data reviewed: vital signs, nurses notes. ED course: Patient arrives today for low back ec2 pain. Examination yields MSK findings as above. Suspect muscular strain. Doubt fracture. Doubt spinal cord pathology given lack of red flag symptoms. Accordingly we will forego advanced imaging such as MRI.. 10:33 ED course: X-ray is nonacute. Will discharge to home. Suspect muscular spasm or strain. ec2 Return precautions given.. 08/20 09:40 Order name: Lumbar Spine (3 Views) XRAY; Complete Time: 10:33 ec2 Administered Medications: 09:54 Drug: Lidoderm Topical Patch 5 % (700 mg/patch) 1 patches Topical once; leave on for 12 ph hours; cover most painful area; may cut into smaller pieces Route: Topical; Site: affected area; 10:48 Follow up: Response: No adverse reaction ph 09:54 Drug: Ketorolac IM 30 mg IM once Route: IM; Site: right deltoid; ph 10:48 Follow up: Response: No adverse reaction ph 09:54 Drug: Diazepam PO 10 mg PO once Route: PO; ph 10:48 Follow up: Response: No adverse reaction ph 09:54 Drug: Acetaminophen PO 1000 mg PO once Route: PO; ph 10:48 Follow up: Response: No adverse reaction ph Disposition Summary: 08/20/24 10:34 Discharge Ordered Notes: Location: Home ec2 Condition: Stable ec2 Diagnosis - Low back pain ec2 Followup: ec2 - With: Private Physician - When: - Reason: Re-evaluation by your physician Discharge Instructions: - Discharge Summary Sheet ec2 - Acute Back Pain, Adult ec2 Forms: - Medication Reconciliation Form ec2 - Antibiotic Education ec2 - Prescription Opioid Use ec2 - Patient Portal Instructions ec2 - Leadership Thank You Letter ec2 Prescriptions: - Valium 5 mg Oral tablet - take 1 tablet ORAL route every 8 hours As needed; 15 tablet; Refills: 0, ec2 Product Selection Permitted Signatures: Dispatcher [employer] Amy Manrique RN RN ph Lewis, Lynsay, RN RN 1 Huang De La Cruz MD MD ec2
[2024-08-20 10:56] VITALS: BP 128/78; TEMP 97.9; O2SAT 98
== END 2024-08-20 10:49 | disposition home or self-care (01) ==
LOC: ER 09:29
DX: M54.50 Low back pain, unspecified (principal)
CPT/HCPCS: 72100; 96372; 99284; J2003